=== PATIENT | male | born 1945 | race Caucasian/White ===

== ENCOUNTER 2018-06-26 05:43 | Inpatient (IN) ==
[2018-06-26] MEDS ORDERED: CLINDAMYCIN INJ 900 MG in PREMIX 1 EACH IV ONE (06:00)
[2018-06-26] MEDS ORDERED: MUPIROCIN 2% OINT 22 GM TUBE TOP ONE (06:18)
[2018-06-26] MEDS ORDERED: LIDOCAINE 1%/EPI INJ 20 ML VIAL ONE ×2 (06:18→08:06)
[2018-06-26] MEDS ORDERED: OXYMETAZOLINE 0.05% NASAL SPRAY 15 ML BOTTLE ONE (06:18)
[2018-06-26] MEDS ORDERED: CHLORHEXIDINE 0.12% ORAL RINSE 60 ML BOTTLE SWISH/SPIT ONE ×4 (06:18→15:06)
[2018-06-26] MEDS: LACTATED RINGERS 1,000 ML IV SCH ×2 (06:50→18:26)
[2018-06-26] MEDS ORDERED: CLINDAMYCIN INJ 50 ML IV ONE (07:00)
[2018-06-26] MEDS ORDERED: DEXAMETHASONE 4 MG/1 ML VIAL IV SCH (07:00)
[2018-06-26] MEDS: CHLORHEXIDINE 0.12% ORAL RINSE 60 ML BOTTLE SWISH/SPIT SCH ×3 (07:06→21:21)
[2018-06-26 08:18] LABS: Apearance,Urine CLEAR (Clear); Bacteria,Urine Occasional /HPF (Few); Bilirubin,Urine Negative (Negative); Blood, Urine Negative (Negative); Glucose,Urine (UA) Negative (Negative); Ketones,Urine Negative (Negative); Mucus,Urine Occasional /LPF (Occasional); Nitrite,Urine Negative (Negative); Protein,Urine Negative; RBC,Urine 3 /HPF (0-4); Urine Color Straw (Yellow); Urine Specific Gravity 1.008 (1.001-1.035); Urine Urobilinogen < 2.0 EU/DL (0.2-1.0); WBC,Urine <1 /HPF (0-6)
[2018-06-26] MEDS ORDERED: BACITRACIN 50,000 UNIT VIAL ONE ×2 (10:44→15:08)
[2018-06-26] MEDS ORDERED: PHENYLEPHRINE 10 MG/1 ML VIAL IV ONE (11:45)
[2018-06-26] MEDS ORDERED: PROPOFOL 200 MG/20 ML VIAL IV ONE (11:45)
[2018-06-26] MEDS ORDERED: MINERAL OIL/PETROLATUM OPH OINT 3.5 GM TUBE ONE (11:46)
[2018-06-26] MEDS ORDERED: SUCCINYLCHOLINE 200 MG/10 ML VIAL ONE (11:46)
[2018-06-26] MEDS ORDERED: GLYCOPYRROLATE 0.4 MG/2 ML VIAL ONE (11:46)
[2018-06-26] MEDS ORDERED: SODIUM CHLORIDE 0.9% 250 ML IV ONE (11:46)
[2018-06-26] MEDS ORDERED: ROCURONIUM 100 MG/10 ML VIAL IV ONE (11:46)
[2018-06-26] MEDS ORDERED: LACTATED RINGERS 1,000 ML IV ONE (11:46)
[2018-06-26 13:36] LABS: ABG Base Excess 2.8 MMOL/L (-2.5-2.5); ABG Oxygen Saturation 99.7 % (95-100); ABG PCO2 32.2 MM HG (35-48); ABG PH 7.505 (7.35-7.45); ABG TCO2 22.3 MMOL/L (23-27)
[2018-06-26] MEDS ORDERED: SUFentanil 250 MCG/5 ML AMP ONE (13:52)
[2018-06-26] MEDS ORDERED: ePHEDrine 50 MG/ML AMP ONE (13:53)
[2018-06-26] MEDS ORDERED: KETAMINE 500 MG/10 ML VIAL ONE (13:53)
[2018-06-26] MEDS ORDERED: MIDAZOLAM 2 MG/2 ML VIAL ONE (13:56)
[2018-06-26] MEDS ORDERED: MIDAZOLAM 10 MG/2 ML VIAL ONE (17:03)
[2018-06-26] MEDS ORDERED: PROPOFOL 1,000 MG/100 ML BOTTLE IV SCH (18:00)
[2018-06-26] MEDS: fentaNYL INJ 1,250 MCG in SODIUM CHLORIDE 0.9% 225 ML IV PRN (18:26)
[2018-06-26] MEDS: CLINDAMYCIN INJ 900 MG in PREMIX 1 EACH IV SCH ×2 (18:27→21:26)
[2018-06-26] MEDS: DEXAMETHASONE 4 MG/1 ML VIAL IV SCH (18:32)
[2018-06-26] MEDS ORDERED: PHENYLEPHRINE DRIP 40 MG/250 ML PREMIX IV PRN (18:45)
[2018-06-26 18:50] LABS: ABG Base Excess -0.7 MMOL/L (-2.5-2.5); ABG HCO3 23.8 MMOL/L (20-26); ABG Oxygen Saturation 99.7 % (95-100); ABG PCO2 37.9 MM HG (35-48); ABG PH 7.404 (7.35-7.45)
[2018-06-26] MEDS: TEMAZEPAM 15 MG CAPSULE PO SCH (21:21)
[2018-06-26] MEDS: PROPOFOL 1,000 MG/100 ML BOTTLE IV SCH (21:22)
[2018-06-26] MEDS: GLYCOPYRROLATE 0.4 MG/2 ML VIAL IV SCH (21:22)
[2018-06-27] MEDS: PROPOFOL 1,000 MG/100 ML BOTTLE IV SCH ×2 (03:23→14:37)
[2018-06-27] MEDS: DEXAMETHASONE 4 MG/1 ML VIAL IV SCH ×3 (05:36→12:23)
[2018-06-27] MEDS: GLYCOPYRROLATE 0.4 MG/2 ML VIAL IV SCH ×3 (05:39→21:02)
[2018-06-27] MEDS: CLINDAMYCIN INJ 900 MG in PREMIX 1 EACH IV SCH ×3 (05:41→21:02)
[2018-06-27 05:54] LABS: ABG Base Excess 1.1 MMOL/L (-2.5-2.5); ABG PCO2 37.1 MM HG (35-48); ABG PH 7.446 (7.35-7.45); ABG PO2 254.2 MM HG (80-95); ABG TCO2 26.1 MMOL/L (23-27)
[2018-06-27 06:02] LABS: Basophils % 0.1 % (0.0-0.8); Hematocrit 29.8 VOL% (42.0-52.0); Hemoglobin 10.3 GM/DL (14.0-18.0); Immature Granulocytes % 0.5 %; Immature Granulocytes Absolute 0.08 #; Lymphocytes # 1.1 10*3/uL (1.4-4.0); Lymphocytes % 7.6 % (21.2-54.2); Mean Corpuscular HGB Conc 34.6 GM/DL (32-36); Mean Corpuscular Hemoglobin 39 PG (27-34); Mean Corpuscular Volume 112.5 FL (87-102); Mean Platelet Volume 11.1 FL (9.6-12.0); Monocytes # 1.7 10*3/uL (0.11-0.8); Monocytes % 11.2 % (1.7-12.7); Neutrophils % 80.6 % (38.7-73.9); Platelet Count 129 T/CUMM (130-400); Red Blood Count 2.65 MC/CUMM (3.8-5.5); Red Cell Distribution Width 14.9 % (9.3-17.3); White Blood Count 14.9 T/CUMM (4-12)
[2018-06-27] MEDS ORDERED: HEPARIN/NACL 0.9% 2 UNITS/ML 500 ML IV ONE (06:14)
[2018-06-27] MEDS: LACTATED RINGERS 1,000 ML IV SCH ×3 (06:20→18:40)
[2018-06-27 06:29] LABS: Band Neutrophils 1 % (0-10); Eosinophils 1 % (0-10); Hypochromasia 1+; Lymphocytes 10 % (20-55); Platelet Estimate Normal; Segmented Neutrophils 75 % (50-85); Total Cells Counted 100
[2018-06-27] MEDS: fentaNYL INJ 1,250 MCG in SODIUM CHLORIDE 0.9% 225 ML IV PRN (08:28)
[2018-06-27] MEDS ORDERED: PROPRANOLOL HCL 60 MG PO SCH (09:00)
[2018-06-27] MEDS ORDERED: GLUCAGON 1 MG VIAL IM PRN (09:06)
[2018-06-27] MEDS ORDERED: DEXTROSE 50% 25 GM/50 ML VIAL IV PRN (09:06)
[2018-06-27] MEDS: MULTIVITAMIN (CENTRUM) TABLET PO SCH (09:41)
[2018-06-27] MEDS: LISINOPRIL 20 MG TABLET PO SCH (09:41)
[2018-06-27] MEDS: ATORVASTATIN 20 MG TABLET PO SCH (09:41)
[2018-06-27] MEDS: CHLORHEXIDINE 0.12% ORAL RINSE 60 ML BOTTLE SWISH/SPIT SCH ×3 (09:41→21:06)
[2018-06-27 09:46] LABS: Calcium 8.3 MG/DL (8.5-10.1); Osmolality,Calculated 287.4 MOS/KG (273-304)
[2018-06-27] MEDS: cloNIDine 0.3 MG/24 HR PATCH TRANSDERM SCH ×2 (12:22→14:32)
[2018-06-27] MEDS: amLODIPine 5 MG TABLET PER TUBE SCH (12:23)
[2018-06-27] MEDS: INSULIN GLARGINE 100 UNIT/ML SUBCUT SCH (12:23)
[2018-06-27] MEDS: INSULIN REGULAR 100 UNIT/ML SUBCUT SCH ×2 (12:24→17:50)
[2018-06-27] MEDS: TEMAZEPAM 15 MG CAPSULE PO SCH (20:58)
[2018-06-28] MEDS: INSULIN REGULAR 100 UNIT/ML SUBCUT SCH ×5 (00:52→23:39)
[2018-06-28 04:13] LABS: Basophils % 0.1 % (0.0-0.8); Hematocrit 26.1 VOL% (42.0-52.0); Hemoglobin 9.1 GM/DL (14.0-18.0); Immature Granulocytes % 0.6 %; Immature Granulocytes Absolute 0.11 #; Lymphocytes # 1.3 10*3/uL (1.4-4.0); Lymphocytes % 7.1 % (21.2-54.2); Mean Corpuscular HGB Conc 34.9 GM/DL (32-36); Mean Corpuscular Hemoglobin 39 PG (27-34); Mean Corpuscular Volume 112.5 FL (87-102); Mean Platelet Volume 10.8 FL (9.6-12.0); Monocytes # 2.2 10*3/uL (0.11-0.8); Monocytes % 11.4 % (1.7-12.7); Neutrophils # 15.4 10*3/uL (1.4-7.4); Neutrophils % 80.8 % (38.7-73.9); Platelet Count 129 T/CUMM (130-400); Red Blood Count 2.32 MC/CUMM (3.8-5.5); Red Cell Distribution Width 15.1 % (9.3-17.3)
[2018-06-28 04:35] LABS: Albumin 2.2 G/DL (3.4-5.0); Bilirubin,Total 1.1 MG/DL (0.2-1.0); Calcium 8.2 MG/DL (8.5-10.1); Potassium 4.2 MMOL/L (3.5-5.1); Total Protein 5.2 G/DL (6.4-8.3)
[2018-06-28 04:42] LABS: Calcium 8.1 MG/DL (8.5-10.1); Potassium 4.1 MMOL/L (3.5-5.1); Prealbumin 15.6 MG/DL (20-40)
[2018-06-28 04:44] LABS: Anisocytosis 1+; Platelet Estimate Adequate
[2018-06-28] MEDS: GLYCOPYRROLATE 0.4 MG/2 ML VIAL IV SCH ×3 (05:50→21:18)
[2018-06-28] MEDS: CLINDAMYCIN INJ 900 MG in PREMIX 1 EACH IV SCH ×3 (05:52→21:17)
[2018-06-28] MEDS: LACTATED RINGERS 1,000 ML IV SCH ×3 (05:53→20:26)
[2018-06-28] MEDS: MULTIVITAMIN (CENTRUM) TABLET PO SCH ×2 (09:24→09:41)
[2018-06-28] MEDS: ATORVASTATIN 20 MG TABLET PO SCH (09:24)
[2018-06-28] MEDS: INSULIN GLARGINE 100 UNIT/ML SUBCUT SCH (09:25)
[2018-06-28] MEDS: amLODIPine 5 MG TABLET PER TUBE SCH (09:26)
[2018-06-28] MEDS: CHLORHEXIDINE 0.12% ORAL RINSE 60 ML BOTTLE SWISH/SPIT SCH ×3 (09:26→20:26)
[2018-06-28] MEDS: LISINOPRIL 20 MG TABLET PO SCH ×2 (09:26→09:41)
[2018-06-28] MEDS: TEMAZEPAM 15 MG CAPSULE PO SCH (20:18)
[2018-06-28] MEDS ORDERED: cloNIDine 0.1 MG/24 HR PATCH TRANSDERM SCH (21:00)
[2018-06-29] MEDS ORDERED: cloNIDine 0.3 MG/24 HR PATCH TRANSDERM SCH (00:30)
[2018-06-29] MEDS: GLYCOPYRROLATE 0.4 MG/2 ML VIAL IV SCH ×2 (05:25→14:40)
[2018-06-29] MEDS: CLINDAMYCIN INJ 900 MG in PREMIX 1 EACH IV SCH ×3 (05:25→21:37)
[2018-06-29] MEDS: INSULIN REGULAR 100 UNIT/ML SUBCUT SCH ×3 (06:19→17:30)
[2018-06-29] MEDS: LACTATED RINGERS 1,000 ML IV SCH (08:13)
[2018-06-29] MEDS: CHLORHEXIDINE 0.12% ORAL RINSE 60 ML BOTTLE SWISH/SPIT SCH ×2 (08:20→16:14)
[2018-06-29] MEDS ORDERED: MORPHINE 4 MG/1 ML VIAL IV PRN (10:07)
[2018-06-29] MEDS ORDERED: KETOROLAC 30 MG/1 ML VIAL IV PRN (10:07)
[2018-06-29] MEDS: INSULIN GLARGINE 100 UNIT/ML SUBCUT SCH (12:36)
[2018-06-29] MEDS: MULTIVITAMIN (CENTRUM) TABLET PO SCH (12:36)
[2018-06-29] MEDS: ATORVASTATIN 20 MG TABLET PO SCH (12:36)
[2018-06-29] MEDS: amLODIPine 5 MG TABLET PER TUBE SCH (12:37)
[2018-06-29] MEDS: LISINOPRIL 20 MG TABLET PO SCH (12:37)
[2018-06-29] MEDS ORDERED: diphenhydrAMINE 50 MG/1 ML VIAL IV ONE (20:55)
[2018-06-29] MEDS: TEMAZEPAM 15 MG CAPSULE PO SCH (20:57)
[2018-06-30] MEDS: CHLORHEXIDINE 0.12% ORAL RINSE 60 ML BOTTLE SWISH/SPIT SCH ×2 (01:43→09:41)
[2018-06-30] MEDS: INSULIN REGULAR 100 UNIT/ML SUBCUT SCH ×3 (01:43→11:59)
[2018-06-30] MEDS: LACTATED RINGERS 1,000 ML IV SCH (04:53)
[2018-06-30 05:38] LABS: Basophils % 0.1 % (0.0-0.8); Eosinophils % 0.3 % (0.00-10.9); Immature Granulocytes % 0.7 %; Immature Granulocytes Absolute 0.05 #; Lymphocytes # 1.8 10*3/uL (1.4-4.0); Lymphocytes % 25.6 % (21.2-54.2); Mean Corpuscular HGB Conc 34.6 GM/DL (32-36); Mean Corpuscular Hemoglobin 38 PG (27-34); Mean Corpuscular Volume 110.6 FL (87-102); Mean Platelet Volume 10.5 FL (9.6-12.0); Monocytes # 0.9 10*3/uL (0.11-0.8); Neutrophils # 4.4 10*3/uL (1.4-7.4); Neutrophils % 61.3 % (38.7-73.9); Platelet Count 120 T/CUMM (130-400); Red Blood Count 2.35 MC/CUMM (3.8-5.5); Red Cell Distribution Width 14.5 % (9.3-17.3); White Blood Count 7.2 T/CUMM (4-12)
[2018-06-30] MEDS: CLINDAMYCIN INJ 900 MG in PREMIX 1 EACH IV SCH (05:42)
[2018-06-30 05:51] LABS: Osmolality,Calculated 288.1 MOS/KG (273-304); Potassium 3.6 MMOL/L (3.5-5.1)
[2018-06-30 06:22] LABS: Band Neutrophils 5 % (0-10); Eosinophils 1 % (0-10); Lymphocytes 24 % (20-55); Metamyelocytes 3 %; Platelet Estimate Decreased; Segmented Neutrophils 53 % (50-85); Total Cells Counted 100
[2018-06-30 06:23] LABS: Anisocytosis 2+; Macrocytosis 2+; Ovalocytes Few
[2018-06-30] MEDS ORDERED: ZALEPLON 5 MG CAPSULE PO PRN (08:10)
[2018-06-30 09:05] LABS: Folate > 24.0 NG/ML (5.4-24.0); Vitamin B12 783 PG/ML (211-911)
[2018-06-30] MEDS: MULTIVITAMIN (CENTRUM) TABLET PO SCH (09:37)
[2018-06-30] MEDS: LISINOPRIL 20 MG TABLET PO SCH (09:38)
[2018-06-30] MEDS: amLODIPine 5 MG TABLET PER TUBE SCH (09:38)
[2018-06-30] MEDS: ATORVASTATIN 20 MG TABLET PO SCH (09:38)
[2018-06-30] MEDS: INSULIN GLARGINE 100 UNIT/ML SUBCUT SCH (09:39)
[2018-06-30 12:31] VITALS: BP 155/71
[2018-06-30] MEDS ORDERED: traZODone 50 MG TABLET PO SCH (21:00)
== END 2018-06-30 13:50 | disposition home health service (06) | DRG 129 ==
LOC: N.OR 05:43 → N.SDSINP 05:43 → N.CC 16:25 → N.3E 06-29 17:58
PROVIDERS: ADMIT Otolaryngology; ATTEND Otolaryngology

== ENCOUNTER 2019-05-17 10:25 | Inpatient (IN) ==
[2019-05-17 12:02] LABS: Basophils % 0.2 % (0.0-0.8); Eosinophils # 0.1 10*3/uL (0.0-0.87); Eosinophils % 2.5 % (0.00-10.9); Immature Granulocytes % 0.5 %; Immature Granulocytes Absolute 0.02 #; Lymphocytes # 0.8 10*3/uL (1.4-4.0); Mean Corpuscular HGB Conc 32.4 GM/DL (32-36); Mean Corpuscular Volume 133.7 FL (87-102); Monocytes % 11.8 % (1.7-12.7); Platelet Count 172 T/CUMM (130-400); Red Blood Count 1.04 MC/CUMM (3.8-5.5); Red Cell Distribution Width 22.9 % (9.3-17.3); White Blood Count 4.4 T/CUMM (4-12)
[2019-05-17 12:08] LABS: Hematocrit 13.9 VOL% (42.0-52.0); Hemoglobin 4.5 GM/DL (14.0-18.0)
[2019-05-17 12:23] LABS: Blood Urea Nitrogen 16 MG/DL (7-18); Calcium 8.4 MG/DL (8.5-10.1); Estimated Glom Filtration Rate 61 ML/MIN; Glucose 163 MG/DL (74-106); Osmolality,Calculated 285.3 MOS/KG (273-304)
[2019-05-17 12:25] LABS: Acanthocytes Few; Anisocytosis 3+; Eosinophils 5 % (0-10); Lymphocytes 22 % (20-55); Macrocytosis 3+; Nucleated Red Blood Cells 1 (0-5); Poikilocytosis Slight; Segmented Neutrophils 66 % (50-85); Total Cells Counted 100
[2019-05-17 12:26] LABS: Microcytosis Slight
[2019-05-17 12:27] LABS: Platelet Estimate Normal
[2019-05-17] MEDS ORDERED: SODIUM CHLORIDE 0.9% 1,000 ML IV PRN ×2 (12:27→14:14)
[2019-05-17] MEDS ORDERED: ACETAMINOPHEN 325 MG TABLET PO PRN (13:37)
[2019-05-17] MEDS ORDERED: LACTULOSE 20 GM/30 ML UDCUP PO PRN (13:37)
[2019-05-17] MEDS ORDERED: SIMETHICONE CHEW 125 MG TABLET PO PRN (13:37)
[2019-05-17] MEDS ORDERED: ALUMINUM/MAGNES/SIMETH MAX STR 30 ML UDCUP PO PRN (13:37)
[2019-05-17] MEDS ORDERED: diphenhydrAMINE CAP 25 MG CAPSULE PO PRN (13:37)
[2019-05-17] MEDS ORDERED: NICOTINE 21 MG/24 HR PATCH TRANSDERM PRN (13:37)
[2019-05-17] MEDS ORDERED: ONDANSETRON 4 MG/2 ML VIAL IV PRN (13:37)
[2019-05-17] MEDS ORDERED: BISACODYL 5 MG TABLET PO PRN (13:37)
[2019-05-17] MEDS ORDERED: DOCUSATE SODIUM 100 MG CAPSULE PO PRN (13:37)
[2019-05-17] MEDS ORDERED: CALCIUM CARBONATE CHEW 500 MG TABLET PO PRN (13:37)
[2019-05-17] MEDS ORDERED: guaiFENesin/DM ER 600-30 MG TABLET PO PRN (13:37)
[2019-05-17] MEDS ORDERED: MORPHINE 4 MG/1 ML VIAL IV PRN (13:37)
[2019-05-17] MEDS ORDERED: FUROSEMIDE 20 MG/2 ML VIAL IV ONE (13:44)
[2019-05-17] MEDS ORDERED: traZODone 50 MG TABLET PO PRN (14:16)
[2019-05-17] MEDS: PANTOPRAZOLE 40 MG VIAL IV SCH (17:02)
[2019-05-17] MEDS: PROPRANOLOL 20 MG TABLET PO SCH (20:35)
[2019-05-17] MEDS: ATORVASTATIN 40 MG TABLET PO SCH (20:35)
[2019-05-17] MEDS: traZODone 50 MG TABLET PO SCH (20:35)
[2019-05-17] MEDS: LORazepam 1 MG TABLET PO SCH (20:35)
[2019-05-18 05:40] LABS: Basophils # 0.1 10*3/uL (0.0-0.2); Basophils % 1.2 % (0.0-0.8); Eosinophils # 0.1 10*3/uL (0.0-0.87); Eosinophils % 2.9 % (0.00-10.9); Hematocrit 24.9 VOL% (42.0-52.0); Hemoglobin 8.9 GM/DL (14.0-18.0); Immature Granulocytes % 0.5 %; Immature Granulocytes Absolute 0.02 #; Lymphocytes % 24.5 % (21.2-54.2); Mean Corpuscular HGB Conc 35.7 GM/DL (32-36); Mean Corpuscular Volume 94.7 FL (87-102); Mean Platelet Volume 9.9 FL (9.6-12.0); Monocytes % 14.6 % (1.7-12.7); Neutrophils % 56.3 % (38.7-73.9); Platelet Count 153 T/CUMM (130-400); Red Blood Count 2.63 MC/CUMM (3.8-5.5); Red Cell Distribution Width 25.4 % (9.3-17.3); White Blood Count 4.1 T/CUMM (4-12)
[2019-05-18 06:23] LABS: % Iron Saturation 97.1 % (18-50); Ferritin 848.7 ng/ml (26-388)
[2019-05-18 06:27] LABS: Hypochromasia Slight; Macrocytosis 2+
[2019-05-18 06:28] LABS: Platelet Estimate Adequate
[2019-05-18 06:32] LABS: Folate 21.7 NG/ML (5.4-24.0)
[2019-05-18] MEDS: PROPRANOLOL 20 MG TABLET PO SCH ×2 (11:36→21:53)
[2019-05-18] MEDS: MULTIVITAMIN (CENTRUM) TABLET PO SCH (11:36)
[2019-05-18] MEDS: lisinopriL 20 MG TABLET PO SCH (11:36)
[2019-05-18] MEDS: PANTOPRAZOLE 40 MG VIAL IV SCH (14:28)
[2019-05-18] MEDS ORDERED: NITROGLYCERIN SL 0.4 MG TABLET SL ONE (20:24)
[2019-05-18] MEDS: NITROGLYCERIN SL 0.4 MG TABLET SL PRN ×2 (20:26→20:33)
[2019-05-18 21:01] LABS: Basophils % 0.7 % (0.0-0.8); Eosinophils # 0.1 10*3/uL (0.0-0.87); Eosinophils % 2.8 % (0.00-10.9); Hematocrit 26.5 VOL% (42.0-52.0); Immature Granulocytes % 0.2 %; Immature Granulocytes Absolute 0.01 #; Lymphocytes % 23.6 % (21.2-54.2); Mean Corpuscular Volume 97.8 FL (87-102); Mean Platelet Volume 9.5 FL (9.6-12.0); Monocytes % 14.8 % (1.7-12.7); Neutrophils % 57.9 % (38.7-73.9); Platelet Count 144 T/CUMM (130-400); Red Blood Count 2.71 MC/CUMM (3.8-5.5); Red Cell Distribution Width 26.2 % (9.3-17.3); White Blood Count 4.3 T/CUMM (4-12)
[2019-05-18 21:02] LABS: Troponin I < 0.015 NG/ML (0.00-0.045)
[2019-05-18] MEDS: ATORVASTATIN 40 MG TABLET PO SCH (21:53)
[2019-05-18] MEDS: traZODone 50 MG TABLET PO SCH (21:53)
[2019-05-18] MEDS: LORazepam 1 MG TABLET PO SCH (21:53)
[2019-05-19 05:30] LABS: Basophils % 1.1 % (0.0-0.8); Eosinophils # 0.1 10*3/uL (0.0-0.87); Eosinophils % 2.2 % (0.00-10.9); Hematocrit 25.5 VOL% (42.0-52.0); Hemoglobin 8.8 GM/DL (14.0-18.0); Immature Granulocytes % 0.3 %; Immature Granulocytes Absolute 0.01 #; Lymphocytes # 1.1 10*3/uL (1.4-4.0); Lymphocytes % 29.3 % (21.2-54.2); Mean Corpuscular HGB Conc 34.5 GM/DL (32-36); Mean Platelet Volume 9.9 FL (9.6-12.0); Monocytes % 15.1 % (1.7-12.7); Platelet Count 138 T/CUMM (130-400); Red Blood Count 2.63 MC/CUMM (3.8-5.5); Red Cell Distribution Width 25.7 % (9.3-17.3); White Blood Count 3.6 T/CUMM (4-12)
[2019-05-19 05:33] LABS: INR 1.1; PT Patient Result 11.6 SECS (9.6-12.2)
[2019-05-19 05:54] LABS: Albumin 2.8 G/DL (3.4-5.0); Bilirubin,Total 2.8 MG/DL (0.2-1.0); Calcium 8.8 MG/DL (8.5-10.1); Osmolality,Calculated 282.1 MOS/KG (273-304); Risk Ratio 2.08; VLDL CHOLESTEROL 16.2 MG/DL
[2019-05-19] MEDS ORDERED: POTASSIUM CHLORIDE 20 MEQ TABLET PO ONE (08:33)
[2019-05-19 08:59] LABS: Hepatitis B Core IgM Quant 0.07 Index; Hepatitis B Surface Ag Quant < 0.10 Index; Hepatitis B Surface Ag Result Negative (Negative); Hepatitis C Virus Ab Quant 0.07 Index; Hepatitis C Virus Ab Result Negative (Negative)
[2019-05-19] MEDS: MULTIVITAMIN (CENTRUM) TABLET PO SCH (10:07)
[2019-05-19] MEDS: lisinopriL 20 MG TABLET PO SCH (10:07)
[2019-05-19] MEDS: PROPRANOLOL 20 MG TABLET PO SCH ×2 (10:07→20:35)
[2019-05-19] MEDS: PANTOPRAZOLE 40 MG VIAL IV SCH (15:04)
[2019-05-19] MEDS: LORazepam 1 MG TABLET PO SCH (20:33)
[2019-05-19] MEDS: ATORVASTATIN 40 MG TABLET PO SCH (20:34)
[2019-05-19] MEDS: traZODone 50 MG TABLET PO SCH (20:34)
[2019-05-20 05:06] LABS: Basophils # 0.1 10*3/uL (0.0-0.2); Basophils % 1.6 % (0.0-0.8); Eosinophils # 0.2 10*3/uL (0.0-0.87); Eosinophils % 4.1 % (0.00-10.9); Hematocrit 26.9 VOL% (42.0-52.0); Immature Granulocytes % 0.5 %; Immature Granulocytes Absolute 0.02 #; Lymphocytes % 26.4 % (21.2-54.2); Mean Corpuscular HGB Conc 33.5 GM/DL (32-36); Mean Corpuscular Volume 98.9 FL (87-102); Mean Platelet Volume 9.8 FL (9.6-12.0); Monocytes % 14.5 % (1.7-12.7); Neutrophils % 52.9 % (38.7-73.9); Platelet Count 135 T/CUMM (130-400); Red Blood Count 2.72 MC/CUMM (3.8-5.5); Red Cell Distribution Width 24.8 % (9.3-17.3); White Blood Count 3.9 T/CUMM (4-12)
[2019-05-20 05:23] LABS: Albumin 2.9 G/DL (3.4-5.0); Bilirubin,Total 2.2 MG/DL (0.2-1.0); Calcium 8.8 MG/DL (8.5-10.1); Osmolality,Calculated 283.1 MOS/KG (273-304); Total Protein 6.1 G/DL (6.4-8.3)
[2019-05-20 05:36] LABS: Hypochromasia 1+; Platelet Estimate Normal
[2019-05-20] MEDS ORDERED: LIDOCAINE 2% 5 ML VIAL ONE (09:00)
[2019-05-20] MEDS ORDERED: propofoL 200 MG/20 ML VIAL IV ONE (09:00)
[2019-05-20] MEDS: POTASSIUM CHLORIDE RIDER 10 MEQ in PREMIX 1 EACH IV PRN ×5 (09:05→15:58)
[2019-05-20] MEDS: lisinopriL 20 MG TABLET PO SCH (09:06)
[2019-05-20] MEDS: PROPRANOLOL 20 MG TABLET PO SCH ×2 (09:17→20:55)
[2019-05-20] MEDS: PANTOPRAZOLE 40 MG VIAL IV SCH (13:00)
[2019-05-20] MEDS: POTASSIUM CHLORIDE 20 MEQ PACK PO SCH (13:01)
[2019-05-20] MEDS: MULTIVITAMIN (CENTRUM) TABLET PO SCH (13:01)
[2019-05-20] MEDS: ATORVASTATIN 40 MG TABLET PO SCH (20:48)
[2019-05-20] MEDS: LORazepam 1 MG TABLET PO SCH (20:48)
[2019-05-20] MEDS: traZODone 50 MG TABLET PO SCH (20:48)
[2019-05-21 07:03] LABS: Basophils # 0.1 10*3/uL (0.0-0.2); Basophils % 1.9 % (0.0-0.8); Eosinophils # 0.2 10*3/uL (0.0-0.87); Eosinophils % 4.7 % (0.00-10.9); Hematocrit 25.2 VOL% (42.0-52.0); Hemoglobin 8.4 GM/DL (14.0-18.0); Immature Granulocytes % 0.3 %; Immature Granulocytes Absolute 0.01 #; Lymphocytes # 0.9 10*3/uL (1.4-4.0); Lymphocytes % 29.4 % (21.2-54.2); Mean Corpuscular HGB Conc 33.3 GM/DL (32-36); Mean Corpuscular Volume 101.6 FL (87-102); Mean Platelet Volume 9.5 FL (9.6-12.0); Monocytes % 15.3 % (1.7-12.7); Neutrophils % 48.4 % (38.7-73.9); Platelet Count 121 T/CUMM (130-400); Red Blood Count 2.48 MC/CUMM (3.8-5.5); Red Cell Distribution Width 24.2 % (9.3-17.3); White Blood Count 3.2 T/CUMM (4-12)
[2019-05-21 07:23] LABS: Albumin 2.7 G/DL (3.4-5.0); Bilirubin,Total 2.3 MG/DL (0.2-1.0); Calcium 8.8 MG/DL (8.5-10.1); Total Protein 5.9 G/DL (6.4-8.3)
[2019-05-21 07:29] LABS: Hypochromasia 2+; Platelet Estimate Normal
[2019-05-21] MEDS: PROPRANOLOL 20 MG TABLET PO SCH (09:12)
[2019-05-21] MEDS: POTASSIUM CHLORIDE 20 MEQ PACK PO SCH (09:12)
[2019-05-21] MEDS: lisinopriL 20 MG TABLET PO SCH (09:12)
[2019-05-21] MEDS: MULTIVITAMIN (CENTRUM) TABLET PO SCH (09:12)
[2019-05-21 11:59] VITALS: BP 137/44
[2019-05-21] MEDS: PANTOPRAZOLE 40 MG VIAL IV SCH (14:37)
== END 2019-05-21 15:59 | disposition home or self-care (01) | DRG 147 ==
LOC: N.ED 10:25 → N.EDINP 13:37 → N.ICU 14:10 → N.2E 05-18 11:05
PROVIDERS: ADMIT Internal Medicine; ATTEND Internal Medicine

== ENCOUNTER 2020-11-20 08:48 | Observation (INO) ==
[2020-11-20] MEDS ORDERED: ONDANSETRON 4 MG/2 ML VIAL IV PRN (09:02)
[2020-11-20] MEDS: LACTATED RINGERS 1,000 ML IV SCH (09:30)
[2020-11-20 10:07] LABS: Basophils # 0.2 10*3/uL (0.0-0.2); Basophils % 1.7 % (0.0-0.8); Eosinophils # 0.2 10*3/uL (0.0-0.87); Hematocrit 25.6 VOL% (42.0-52.0); Hemoglobin 8.1 GM/DL (14.0-18.0); Immature Granulocytes % 1.4 %; Immature Granulocytes Absolute 0.14 #; Lymphocytes # 1.9 10*3/uL (1.4-4.0); Lymphocytes % 19.5 % (21.2-54.2); Mean Corpuscular HGB Conc 31.6 GM/DL (32-36); Mean Corpuscular Volume 119.1 FL (87-102); Mean Platelet Volume 9.7 FL (9.6-12.0); Monocytes % 4.8 % (1.7-12.7); Neutrophils % 70.6 % (38.7-73.9); Platelet Count 486 T/CUMM (130-400); Red Blood Count 2.15 MC/CUMM (3.8-5.5); White Blood Count 9.8 T/CUMM (4-12)
[2020-11-20 10:16] LABS: INR 1.1; PT Patient Result 12.4 SECS (10.5-12.0)
[2020-11-20 10:31] LABS: Anisocytosis 1+; Band Neutrophils 6 % (0-10); Hypochromasia Slight; Lymphocytes 11 % (20-55); Macrocytosis 1+; Segmented Neutrophils 77 % (50-85); Total Cells Counted 100
[2020-11-20 10:32] LABS: Platelet Estimate Increased
[2020-11-20] MEDS ORDERED: LIDOCAINE 2% 5 ML VIAL ONE (10:44)
[2020-11-20] MEDS ORDERED: propofoL 200 MG/20 ML VIAL IV ONE (10:44)
[2020-11-20] MEDS: SODIUM CHLORIDE 0.9% 1,000 ML IV SCH ×2 (12:00→23:52)
[2020-11-21 12:55] VITALS: BP 119/43
[2020-11-21] MEDS: LACTATED RINGERS 1,000 ML IV SCH (13:39)
[2020-11-21] MEDS: SODIUM CHLORIDE 0.9% 1,000 ML IV SCH (14:20)
== END 2020-11-21 14:20 | disposition home health service (06) ==
LOC: N.5E 08:48 → N.GILAB 08:48 → N.5E 11:51
PROVIDERS: ADMIT Internal Medicine Gastroenterology; ATTEND Internal Medicine Gastroenterology
PROC: EGDWPEG (ICD-10-PCS; 2020-11-20 08:20)

== ENCOUNTER 2020-12-07 18:10 | Inpatient (IN) ==
[2020-12-07] MEDS ORDERED: PIPERACILLIN/TAZOBACTAM 3,375 MG in SODIUM CHLORIDE 0.9% 100 ML IV STA (19:04)
[2020-12-07] MEDS ORDERED: ONDANSETRON 4 MG/2 ML VIAL IV STA (19:04)
[2020-12-07] MEDS ORDERED: ALBUTEROL/IPRATROPIUM 3 ML NEB RESP TX STA (19:04)
[2020-12-07] MEDS ORDERED: methylPREDNISolone SOD SUC 125 MG/2 ML VIAL IV STA (19:04)
[2020-12-07] MEDS ORDERED: SODIUM CHLORIDE 0.9% 500 ML IV STA (19:04)
[2020-12-07 19:51] LABS: Basophils # 0.1 10*3/uL (0.0-0.2); Basophils % 0.3 % (0.0-0.8); Eosinophils # 0.1 10*3/uL (0.0-0.87); Eosinophils % 0.2 % (0.00-10.9); Immature Granulocytes % 1.8 %; Immature Granulocytes Absolute 0.46 #; Lymphocytes # 1.8 10*3/uL (1.4-4.0); Lymphocytes % 6.8 % (21.2-54.2); Mean Corpuscular HGB Conc 32.1 GM/DL (32-36); Mean Corpuscular Volume 126.6 FL (87-102); Mean Platelet Volume 10.2 FL (9.6-12.0); Monocytes % 3.6 % (1.7-12.7); Neutrophils % 87.3 % (38.7-73.9); Platelet Count 721 T/CUMM (130-400); Red Blood Count 1.28 MC/CUMM (3.8-5.5); Red Cell Distribution Width 23.5 % (9.3-17.3); White Blood Count 25.7 T/CUMM (4-12)
[2020-12-07 20:00] LABS: Hematocrit 16.2 VOL% (42.0-52.0); Hemoglobin 5.2 GM/DL (14.0-18.0)
[2020-12-07 20:09] LABS: Albumin 2.2 G/DL (3.4-5.0); Bilirubin,Total 1.1 MG/DL (0.20-1.00); Calcium 8.2 MG/DL (8.5-10.1); Potassium 3.9 MMOL/L (3.5-5.1); Total Protein 7.5 G/DL (6.4-8.2)
[2020-12-07 20:21] LABS: INR 1.2; PT Patient Result 13.5 SECS (10.5-12.0)
[2020-12-07 21:03] LABS: Band Neutrophils 1 % (0-10); Eosinophils 1 % (0-10); Lymphocytes 8 % (20-55); Segmented Neutrophils 89 % (50-85); Total Cells Counted 100
[2020-12-07 21:04] LABS: Anisocytosis 1+; Polychromasia 1+
[2020-12-07 21:05] LABS: Platelet Estimate Increased
[2020-12-07] MEDS ORDERED: VECURONIUM 10 MG VIAL IV ONE (21:51)
[2020-12-07] MEDS ORDERED: ETOMIDATE 20 MG/10 ML VIAL IV ONE (21:51)
[2020-12-07] MEDS ORDERED: SODIUM CHLORIDE 0.9% 1,000 ML IV PRN (22:03)
[2020-12-07] MEDS ORDERED: ALBUTEROL 2.5 MG/3 ML NEB RESP TX PRN (22:03)
[2020-12-07] MEDS ORDERED: ONDANSETRON 4 MG/2 ML VIAL IV PRN (22:08)
[2020-12-07] MEDS ORDERED: hydrALAZINE 20 MG/1 ML VIAL IV PRN (22:08)
[2020-12-07] MEDS ORDERED: NICOTINE 21 MG/24 HR PATCH TRANSDERM PRN (22:08)
[2020-12-07] MEDS: MIDAZOLAM 100 MG in SODIUM CHLORIDE 0.9% 80 ML IV PRN (22:25)
[2020-12-07 22:43] LABS: ABG Base Excess -9.5 MMOL/L (-2.5-2.5); ABG HCO3 16.6 MMOL/L (20-26); ABG Oxygen Saturation 99.7 % (95-100); ABG TCO2 18.7 MMOL/L (23-27)
[2020-12-07 22:44] LABS: ABG PH 7.145 (7.35-7.45)
[2020-12-08] MEDS: LACTATED RINGERS 1,000 ML IV SCH ×2 (01:00→17:39)
[2020-12-08] MEDS: ALBUTEROL/IPRATROPIUM 3 ML NEB RESP TX SCH ×2 (01:25→08:21)
[2020-12-08 03:06] LABS: Bilirubin,Urine Negative (Negative); Blood, Urine Small mg/dL (Negative); Glucose,Urine (UA) 50 mg/dL (Negative); Ketones,Urine Negative (Negative); Nitrite,Urine Negative (Negative); Protein,Urine 100 MG/DL; RBC,Urine 8 /HPF (0-4); Squamous Epithelial Cell,Urine Occasional /HPF (0-10); Urine Appearance CLOUDY (Clear); Urine Color Yellow (Yellow); Urine Specific Gravity 1.019 (1.001-1.035); Urine Urobilinogen < 2.0 EU/DL (0.2-1.0)
[2020-12-08] MEDS ORDERED: SODIUM CHLORIDE 0.9% 500 ML IV ONE (03:50)
[2020-12-08] MEDS: ENOXAPARIN 30 MG/0.3 ML SYRINGE SUBCUT SCH ×3 (04:00→23:57)
[2020-12-08 05:18] LABS: ABG HCO3 20.1 MMOL/L (20-26); ABG PCO2 32.2 MM HG (35-48); ABG PH 7.413 (7.35-7.45); ABG PO2 239.5 MM HG (80-95); ABG TCO2 21.1 MMOL/L (23-27)
[2020-12-08 06:16] LABS: Basophils # 0.1 10*3/uL (0.0-0.2); Basophils % 0.5 % (0.0-0.8); Eosinophils % 0.1 % (0.00-10.9); Hematocrit 21.9 VOL% (42.0-52.0); Immature Granulocytes % 2.8 %; Immature Granulocytes Absolute 0.81 #; Lymphocytes % 3.6 % (21.2-54.2); Mean Corpuscular HGB Conc 32.9 GM/DL (32-36); Mean Corpuscular Volume 106.3 FL (87-102); Monocytes % 1.7 % (1.7-12.7); Neutrophils % 91.3 % (38.7-73.9); Red Cell Distribution Width 25.1 % (9.3-17.3); White Blood Count 28.8 T/CUMM (4-12)
[2020-12-08 06:21] LABS: INR 1.3
[2020-12-08 06:39] LABS: Bilirubin,Total 1.5 MG/DL (0.20-1.00); Calcium 7.7 MG/DL (8.5-10.1); Osmolality,Calculated 293.8 MOS/KG (273-304); Potassium 4.6 MMOL/L (3.5-5.1); Total Protein 6.6 G/DL (6.4-8.2)
[2020-12-08 06:40] LABS: Red Blood Count 2.06 MC/CUMM (3.8-5.5)
[2020-12-08 06:41] LABS: Hemoglobin 7.2 GM/DL (14.0-18.0); Platelet Count 417 T/CUMM (130-400)
[2020-12-08 06:43] LABS: Band Neutrophils 3 % (0-10); Hypochromasia 1+; Lymphocytes 4 % (20-55); Microcytosis 1+; Platelet Estimate Adequate; Segmented Neutrophils 91 % (50-85); Total Cells Counted 100
[2020-12-08 06:53] LABS: Ferritin 24892.6 ng/mL (26-388)
[2020-12-08] MEDS: DEXAMETHASONE 4 MG/1 ML VIAL IV SCH (08:03)
[2020-12-08] MEDS: ZINC GLUCONATE 50 MG TABLET PO SCH (08:03)
[2020-12-08] MEDS: PANTOPRAZOLE 40 MG VIAL IV SCH (08:03)
[2020-12-08] MEDS: ASCORBIC ACID 500 MG TABLET PO SCH ×2 (08:03→20:53)
[2020-12-08] MEDS: CHOLECALCIFEROL 1,000 UNIT TABLET PO SCH (08:03)
[2020-12-08] MEDS: CETIRIZINE 10 MG TABLET PO SCH (08:03)
[2020-12-08] MEDS: NOREPINEPHRINE 8 MG in SODIUM CHLORIDE 0.9% 242 ML IV PRN ×2 (08:53→16:50)
[2020-12-08] MEDS ORDERED: PROPRANOLOL 10 MG TABLET PEG SCH (09:00)
[2020-12-08] MEDS ORDERED: DEXTROSE 50% 25 GM/50 ML VIAL IV PRN (09:27)
[2020-12-08] MEDS: PIPERACILLIN/TAZOBACTAM 3,375 MG in SODIUM CHLORIDE 0.9% 100 ML IV SCH ×3 (10:00→23:57)
[2020-12-08] MEDS: INSULIN REGULAR 100 UNIT/ML SUBCUT SCH ×2 (12:46→17:40)
[2020-12-08] MEDS: ALBUTEROL INHALER 18 GM INH SCH (17:39)
[2020-12-08] MEDS: MIDAZOLAM 100 MG in SODIUM CHLORIDE 0.9% 80 ML IV PRN (23:40)
[2020-12-09] MEDS: INSULIN REGULAR 100 UNIT/ML SUBCUT SCH ×4 (00:09→17:40)
[2020-12-09] MEDS: LACTATED RINGERS 1,000 ML IV SCH ×3 (05:22→19:27)
[2020-12-09 05:23] LABS: ABG Base Excess -3.3 MMOL/L (-2.5-2.5); ABG HCO3 21.6 MMOL/L (20-26); ABG PCO2 29.7 MM HG (35-48); ABG PH 7.439 (7.35-7.45); ABG TCO2 18.8 MMOL/L (23-27)
[2020-12-09 05:50] LABS: Basophils # 0.1 10*3/uL (0.0-0.2); Basophils % 0.1 % (0.0-0.8); Hematocrit 19.7 VOL% (42.0-52.0); Hemoglobin 6.9 GM/DL (14.0-18.0); Immature Granulocytes % 1.9 %; Immature Granulocytes Absolute 0.65 #; Lymphocytes # 0.6 10*3/uL (1.4-4.0); Lymphocytes % 1.8 % (21.2-54.2); Mean Corpuscular Volume 104.8 FL (87-102); Mean Platelet Volume 10.3 FL (9.6-12.0); Monocytes % 1.9 % (1.7-12.7); Neutrophils % 94.3 % (38.7-73.9); Platelet Count 427 T/CUMM (130-400); Red Blood Count 1.88 MC/CUMM (3.8-5.5); Red Cell Distribution Width 26.9 % (9.3-17.3); White Blood Count 33.7 T/CUMM (4-12)
[2020-12-09 06:13] LABS: Band Neutrophils 8 % (0-10); Lymphocytes 3 % (20-55); Metamyelocytes 1 %; Myelocytes 1 %; Segmented Neutrophils 86 % (50-85); Total Cells Counted 100
[2020-12-09 06:14] LABS: Anisocytosis 1+; Hypochromasia Slight; Microcytosis 1+; Platelet Estimate Increased; Polychromasia Slight
[2020-12-09 06:19] LABS: Albumin 1.8 G/DL (3.4-5.0); Calcium 7.6 MG/DL (8.5-10.1); Osmolality,Calculated 302.5 MOS/KG (273-304); Potassium 4.1 MMOL/L (3.5-5.1); Total Protein 5.9 G/DL (6.4-8.2)
[2020-12-09] MEDS ORDERED: SODIUM CHLORIDE 0.9% 1,000 ML IV PRN (07:05)
[2020-12-09] MEDS: ALBUTEROL INHALER 18 GM INH SCH ×4 (07:06→18:37)
[2020-12-09] MEDS: MIDAZOLAM 100 MG in SODIUM CHLORIDE 0.9% 80 ML IV PRN ×2 (08:00→22:46)
[2020-12-09] MEDS: PANTOPRAZOLE 40 MG VIAL IV SCH (08:39)
[2020-12-09] MEDS: CETIRIZINE 10 MG TABLET PO SCH (08:39)
[2020-12-09] MEDS: DEXAMETHASONE 4 MG/1 ML VIAL IV SCH (08:39)
[2020-12-09] MEDS: ASCORBIC ACID 500 MG TABLET PO SCH ×2 (08:39→20:12)
[2020-12-09] MEDS: CHOLECALCIFEROL 1,000 UNIT TABLET PO SCH (08:39)
[2020-12-09] MEDS: ZINC GLUCONATE 50 MG TABLET PO SCH (08:39)
[2020-12-09] MEDS: PIPERACILLIN/TAZOBACTAM 3,375 MG in SODIUM CHLORIDE 0.9% 100 ML IV SCH ×2 (09:25→17:20)
[2020-12-09] MEDS: ENOXAPARIN 30 MG/0.3 ML SYRINGE SUBCUT SCH (14:35)
[2020-12-09 20:10] LABS: Hematocrit 24.2 VOL% (42.0-52.0)
[2020-12-09 20:15] LABS: Hemoglobin 8.3 GM/DL (14.0-18.0)
[2020-12-09] MEDS: NOREPINEPHRINE 8 MG in SODIUM CHLORIDE 0.9% 242 ML IV PRN (22:53)
[2020-12-10] MEDS: INSULIN REGULAR 100 UNIT/ML SUBCUT SCH ×5 (00:17→23:52)
[2020-12-10] MEDS: ENOXAPARIN 30 MG/0.3 ML SYRINGE SUBCUT SCH ×3 (00:17→23:52)
[2020-12-10] MEDS: PIPERACILLIN/TAZOBACTAM 3,375 MG in SODIUM CHLORIDE 0.9% 100 ML IV SCH ×4 (00:35→23:52)
[2020-12-10] MEDS: ALBUTEROL INHALER 18 GM INH SCH ×4 (02:13→18:16)
[2020-12-10 03:55] LABS: ABG Base Excess 0.4 MMOL/L (-2.5-2.5); ABG HCO3 23.4 MMOL/L (20-26); ABG Oxygen Saturation 98.6 % (95-100); ABG PCO2 31.6 MM HG (35-48); ABG PH 7.488 (7.35-7.45); ABG PO2 195.8 MM HG (80-95); ABG TCO2 24.4 MMOL/L (23-27); Basophils % 0.1 % (0.0-0.8); Hemoglobin 8.2 GM/DL (14.0-18.0); Immature Granulocytes % 1.6 %; Immature Granulocytes Absolute 0.43 #; Lymphocytes # 0.7 10*3/uL (1.4-4.0); Lymphocytes % 2.4 % (21.2-54.2); Mean Corpuscular HGB Conc 34.2 GM/DL (32-36); Mean Corpuscular Volume 103.4 FL (87-102); Mean Platelet Volume 10.6 FL (9.6-12.0); Monocytes % 1.6 % (1.7-12.7); Neutrophils % 94.3 % (38.7-73.9); Platelet Count 330 T/CUMM (130-400); Red Blood Count 2.32 MC/CUMM (3.8-5.5); Red Cell Distribution Width 24.5 % (9.3-17.3); White Blood Count 27.4 T/CUMM (4-12)
[2020-12-10 04:19] LABS: Calcium 7.8 MG/DL (8.5-10.1); Osmolality,Calculated 295.5 MOS/KG (273-304); Potassium 4.2 MMOL/L (3.5-5.1)
[2020-12-10 04:21] LABS: Band Neutrophils 1 % (0-10); Lymphocytes 3 % (20-55); Platelet Estimate Adequate; Segmented Neutrophils 95 % (50-85); Total Cells Counted 100
[2020-12-10 04:22] LABS: Hypochromasia 1+; Microcytosis Slight
[2020-12-10 04:36] LABS: Ferritin 6941.2 ng/mL (26-388)
[2020-12-10] MEDS: LACTATED RINGERS 1,000 ML IV SCH ×3 (06:39→19:48)
[2020-12-10] MEDS: MIDAZOLAM 100 MG in SODIUM CHLORIDE 0.9% 80 ML IV PRN (07:00)
[2020-12-10] MEDS: DEXAMETHASONE 4 MG/1 ML VIAL IV SCH (08:55)
[2020-12-10] MEDS: PANTOPRAZOLE 40 MG VIAL IV SCH (09:00)
[2020-12-10] MEDS: CETIRIZINE 10 MG TABLET PO SCH (09:38)
[2020-12-10] MEDS: CHOLECALCIFEROL 1,000 UNIT TABLET PO SCH (09:38)
[2020-12-10] MEDS: ZINC GLUCONATE 50 MG TABLET PO SCH (09:38)
[2020-12-10] MEDS: ASCORBIC ACID 500 MG TABLET PO SCH ×2 (09:38→20:52)
[2020-12-11] MEDS: MIDAZOLAM 100 MG in SODIUM CHLORIDE 0.9% 80 ML IV PRN (00:18)
[2020-12-11] MEDS: ALBUTEROL INHALER 18 GM INH SCH ×3 (02:25→14:10)
[2020-12-11 05:06] LABS: ABG Base Excess 2.5 MMOL/L (-2.5-2.5); ABG HCO3 25.6 MMOL/L (20-26); ABG Oxygen Saturation 98.8 % (95-100); ABG PCO2 33.1 MM HG (35-48); ABG PH 7.506 (7.35-7.45); ABG PO2 197.3 MM HG (80-95); ABG TCO2 26.6 MMOL/L (23-27)
[2020-12-11 05:17] LABS: Basophils % 0.1 % (0.0-0.8); Hematocrit 24.6 VOL% (42.0-52.0); Hemoglobin 7.9 GM/DL (14.0-18.0); Immature Granulocytes % 1.3 %; Immature Granulocytes Absolute 0.21 #; Lymphocytes # 0.5 10*3/uL (1.4-4.0); Lymphocytes % 3.3 % (21.2-54.2); Mean Corpuscular HGB Conc 32.1 GM/DL (32-36); Mean Platelet Volume 10.8 FL (9.6-12.0); Monocytes % 2.7 % (1.7-12.7); Neutrophils % 92.6 % (38.7-73.9); Platelet Count 252 T/CUMM (130-400); Red Blood Count 2.32 MC/CUMM (3.8-5.5); Red Cell Distribution Width 24.9 % (9.3-17.3); White Blood Count 15.8 T/CUMM (4-12)
[2020-12-11 05:34] LABS: Albumin 1.6 G/DL (3.4-5.0); Bilirubin,Total 0.8 MG/DL (0.20-1.00); Calcium 7.7 MG/DL (8.5-10.1); Osmolality,Calculated 296.8 MOS/KG (273-304); Potassium 4.2 MMOL/L (3.5-5.1); Total Protein 5.4 G/DL (6.4-8.2)
[2020-12-11] MEDS: INSULIN REGULAR 100 UNIT/ML SUBCUT SCH ×3 (05:43→18:30)
[2020-12-11] MEDS: LACTATED RINGERS 1,000 ML IV SCH ×2 (05:52→09:12)
[2020-12-11 06:10] LABS: Anisocytosis 3+; Band Neutrophils 35 % (0-10); Lymphocytes 4 % (20-55); Macrocytosis 2+; Metamyelocytes 1 %; Platelet Estimate Normal; Segmented Neutrophils 58 % (50-85); Total Cells Counted 100
[2020-12-11] MEDS: PANTOPRAZOLE 40 MG VIAL IV SCH (08:23)
[2020-12-11] MEDS: DEXAMETHASONE 4 MG/1 ML VIAL IV SCH (08:23)
[2020-12-11] MEDS: CETIRIZINE 10 MG TABLET PO SCH (08:24)
[2020-12-11] MEDS: ZINC GLUCONATE 50 MG TABLET PO SCH (08:24)
[2020-12-11] MEDS: ASCORBIC ACID 500 MG TABLET PO SCH ×2 (08:24→20:56)
[2020-12-11] MEDS: CHOLECALCIFEROL 1,000 UNIT TABLET PO SCH (08:24)
[2020-12-11] MEDS: PIPERACILLIN/TAZOBACTAM 3,375 MG in SODIUM CHLORIDE 0.9% 100 ML IV SCH ×2 (09:06→16:45)
[2020-12-11] MEDS ORDERED: POTASSIUM PHOSPHATE 30 MMOL in SODIUM CHLORIDE 0.9% 250 ML IV ONE (10:00)
[2020-12-11] MEDS ORDERED: FUROSEMIDE 20 MG/2 ML VIAL IV ONE (10:01)
[2020-12-11] MEDS: ENOXAPARIN 30 MG/0.3 ML SYRINGE SUBCUT SCH (12:31)
[2020-12-11] MEDS: MORPHINE 2 MG/1 ML SYRINGE IV PRN (12:32)
[2020-12-11] MEDS ORDERED: PROPRANOLOL 10 MG TABLET PO ONE (15:29)
[2020-12-12] MEDS: ENOXAPARIN 30 MG/0.3 ML SYRINGE SUBCUT SCH ×2 (00:38→14:03)
[2020-12-12] MEDS: INSULIN REGULAR 100 UNIT/ML SUBCUT SCH ×4 (00:38→18:45)
[2020-12-12] MEDS: MORPHINE 2 MG/1 ML SYRINGE IV PRN ×2 (00:39→06:19)
[2020-12-12] MEDS: PIPERACILLIN/TAZOBACTAM 3,375 MG in SODIUM CHLORIDE 0.9% 100 ML IV SCH ×3 (00:42→17:21)
[2020-12-12] MEDS: ALBUTEROL INHALER 18 GM INH SCH ×5 (02:09→21:38)
[2020-12-12 03:30] LABS: ABG Base Excess 2.6 MMOL/L (-2.5-2.5); ABG HCO3 26.7 MMOL/L (20-26); ABG Oxygen Saturation 92.7 % (95-100); ABG PCO2 36.5 MM HG (35-48); ABG PH 7.465 (7.35-7.45); ABG PO2 62.1 MM HG (80-95); ABG TCO2 24.1 MMOL/L (23-27)
[2020-12-12 06:20] LABS: Basophils % 0.1 % (0.0-0.8); Eosinophils % 0.1 % (0.00-10.9); Hematocrit 29.4 VOL% (42.0-52.0); Immature Granulocytes % 1.4 %; Immature Granulocytes Absolute 0.28 #; Lymphocytes # 1.2 10*3/uL (1.4-4.0); Lymphocytes % 6.1 % (21.2-54.2); Mean Corpuscular Volume 109.7 FL (87-102); Mean Platelet Volume 11.4 FL (9.6-12.0); Monocytes % 2.8 % (1.7-12.7); Neutrophils % 89.5 % (38.7-73.9); Platelet Count 261 T/CUMM (130-400); Red Blood Count 2.68 MC/CUMM (3.8-5.5); Red Cell Distribution Width 24.9 % (9.3-17.3); White Blood Count 19.6 T/CUMM (4-12)
[2020-12-12 06:21] LABS: Calcium 7.8 MG/DL (8.5-10.1); Potassium 4.1 MMOL/L (3.5-5.1)
[2020-12-12 06:25] LABS: Hemoglobin 9.4 GM/DL (14.0-18.0)
[2020-12-12 06:39] LABS: Hypochromasia 1+; Lymphocytes 7 % (20-55); Microcytosis 1+; Platelet Estimate Adequate; Segmented Neutrophils 91 % (50-85); Total Cells Counted 100
[2020-12-12] MEDS: CETIRIZINE 10 MG TABLET PO SCH (09:01)
[2020-12-12] MEDS: ASCORBIC ACID 500 MG TABLET PO SCH ×2 (09:01→21:38)
[2020-12-12] MEDS: PROPRANOLOL 10 MG TABLET PO SCH ×2 (09:01→21:38)
[2020-12-12] MEDS: PANTOPRAZOLE 40 MG VIAL IV SCH (09:01)
[2020-12-12] MEDS: ZINC GLUCONATE 50 MG TABLET PO SCH (09:01)
[2020-12-12] MEDS: CHOLECALCIFEROL 1,000 UNIT TABLET PO SCH (09:01)
[2020-12-12] MEDS: DEXAMETHASONE 4 MG/1 ML VIAL IV SCH (09:02)
[2020-12-13] MEDS: INSULIN REGULAR 100 UNIT/ML SUBCUT SCH ×4 (00:50→19:12)
[2020-12-13] MEDS: ALBUTEROL INHALER 18 GM INH SCH ×4 (00:50→21:35)
[2020-12-13] MEDS: ENOXAPARIN 30 MG/0.3 ML SYRINGE SUBCUT SCH ×2 (00:50→13:17)
[2020-12-13] MEDS: PIPERACILLIN/TAZOBACTAM 3,375 MG in SODIUM CHLORIDE 0.9% 100 ML IV SCH ×2 (00:50→09:54)
[2020-12-13 03:46] LABS: ABG Base Excess 5.4 MMOL/L (-2.5-2.5); ABG HCO3 28.8 MMOL/L (20-26); ABG Oxygen Saturation 98.5 % (95-100); ABG PCO2 37.8 MM HG (35-48); ABG PO2 152.1 MM HG (80-95)
[2020-12-13 04:46] LABS: Basophils % 0.1 % (0.0-0.8); Eosinophils % 0.1 % (0.00-10.9); Hematocrit 29.7 VOL% (42.0-52.0); Hemoglobin 9.4 GM/DL (14.0-18.0); Immature Granulocytes % 1.1 %; Immature Granulocytes Absolute 0.21 #; Lymphocytes # 1.2 10*3/uL (1.4-4.0); Lymphocytes % 6.5 % (21.2-54.2); Mean Corpuscular HGB Conc 31.6 GM/DL (32-36); Mean Corpuscular Volume 112.5 FL (87-102); Mean Platelet Volume 11.4 FL (9.6-12.0); Monocytes % 2.2 % (1.7-12.7); Platelet Count 186 T/CUMM (130-400); Red Blood Count 2.64 MC/CUMM (3.8-5.5); Red Cell Distribution Width 24.2 % (9.3-17.3); White Blood Count 19.2 T/CUMM (4-12)
[2020-12-13 05:07] LABS: Osmolality,Calculated 294.8 MOS/KG (273-304); Potassium 4.1 MMOL/L (3.5-5.1)
[2020-12-13 05:16] LABS: Hypochromasia 1+; Lymphocytes 5 % (20-55); Microcytosis 1+; Platelet Estimate Adequate; Segmented Neutrophils 91 % (50-85); Total Cells Counted 100
[2020-12-13] MEDS: CETIRIZINE 10 MG TABLET PO SCH (09:00)
[2020-12-13] MEDS: PROPRANOLOL 10 MG TABLET PO SCH ×2 (09:00→21:35)
[2020-12-13] MEDS: DEXAMETHASONE 4 MG/1 ML VIAL IV SCH (09:00)
[2020-12-13] MEDS: PANTOPRAZOLE 40 MG VIAL IV SCH (09:00)
[2020-12-13] MEDS: ASCORBIC ACID 500 MG TABLET PO SCH ×2 (09:00→21:35)
[2020-12-13] MEDS: ZINC GLUCONATE 50 MG TABLET PO SCH (09:00)
[2020-12-13] MEDS: CHOLECALCIFEROL 1,000 UNIT TABLET PO SCH (09:00)
[2020-12-13] MEDS: CIPROFLOXACIN 100 MG/ML 100 ML/BOTTLE PO SCH ×2 (12:00→21:35)
[2020-12-14] MEDS: INSULIN REGULAR 100 UNIT/ML SUBCUT SCH ×4 (00:40→18:15)
[2020-12-14] MEDS: ENOXAPARIN 30 MG/0.3 ML SYRINGE SUBCUT SCH ×2 (00:40→12:00)
[2020-12-14] MEDS: ALBUTEROL INHALER 18 GM INH SCH (00:40)
[2020-12-14 05:12] LABS: Eosinophils # 0.1 10*3/uL (0.0-0.87); Eosinophils % 0.3 % (0.00-10.9); Hematocrit 29.5 VOL% (42.0-52.0); Hemoglobin 9.4 GM/DL (14.0-18.0); Immature Granulocytes % 1.1 %; Immature Granulocytes Absolute 0.25 #; Lymphocytes # 1.8 10*3/uL (1.4-4.0); Lymphocytes % 8.3 % (21.2-54.2); Mean Corpuscular HGB Conc 31.9 GM/DL (32-36); Mean Corpuscular Volume 111.7 FL (87-102); Mean Platelet Volume 11.4 FL (9.6-12.0); Monocytes % 3.1 % (1.7-12.7); Neutrophils % 87.2 % (38.7-73.9); Platelet Count 201 T/CUMM (130-400); Red Blood Count 2.64 MC/CUMM (3.8-5.5); White Blood Count 22.1 T/CUMM (4-12)
[2020-12-14 05:37] LABS: Calcium 7.9 MG/DL (8.5-10.1); Osmolality,Calculated 290.1 MOS/KG (273-304); Potassium 3.9 MMOL/L (3.5-5.1)
[2020-12-14 05:39] LABS: Anisocytosis 1+; Band Neutrophils 2 % (0-10); Hypochromasia 1+; Lymphocytes 7 % (20-55); Microcytosis 1+; Platelet Estimate Normal; Segmented Neutrophils 89 % (50-85); Total Cells Counted 100
[2020-12-14 05:41] LABS: Albumin 1.8 G/DL (3.4-5.0); Bilirubin,Total 1.8 MG/DL (0.20-1.00); Calcium 8.1 MG/DL (8.5-10.1); Osmolality,Calculated 293.8 MOS/KG (273-304); Potassium 3.7 MMOL/L (3.5-5.1); Total Protein 5.5 G/DL (6.4-8.2)
[2020-12-14] MEDS ORDERED: POTASSIUM CHLORIDE 20 MEQ PACK PO ONE (08:32)
[2020-12-14] MEDS: ROSUVASTATIN 10 MG TABLET PEG SCH (09:00)
[2020-12-14] MEDS ORDERED: ROSUVASTATIN 20 MG TABLET PEG SCH (09:00)
[2020-12-14] MEDS: DEXAMETHASONE 4 MG/1 ML VIAL IV SCH (09:30)
[2020-12-14] MEDS: ASCORBIC ACID 500 MG TABLET PO SCH ×2 (09:30→20:51)
[2020-12-14] MEDS: PROPRANOLOL 10 MG TABLET PO SCH ×2 (09:30→20:51)
[2020-12-14] MEDS: CETIRIZINE 10 MG TABLET PO SCH (09:30)
[2020-12-14] MEDS: ZINC GLUCONATE 50 MG TABLET PO SCH (09:30)
[2020-12-14] MEDS: PANTOPRAZOLE 40 MG VIAL IV SCH (09:30)
[2020-12-14] MEDS: CHOLECALCIFEROL 1,000 UNIT TABLET PO SCH (09:30)
[2020-12-14] MEDS: CIPROFLOXACIN 100 MG/ML 100 ML/BOTTLE PO SCH ×2 (10:49→20:52)
[2020-12-14 11:42] LABS: ABG Base Excess 4.6 MMOL/L (-2.5-2.5); ABG HCO3 28.5 MMOL/L (20-26); ABG Oxygen Saturation 96.2 % (95-100); ABG PCO2 31.2 MM HG (35-48); ABG PH 7.541 (7.35-7.45); ABG PO2 72.3 MM HG (80-95); ABG TCO2 24.1 MMOL/L (23-27); Allen Test Positive
[2020-12-15] MEDS: ENOXAPARIN 30 MG/0.3 ML SYRINGE SUBCUT SCH ×2 (00:53→21:21)
[2020-12-15] MEDS: INSULIN REGULAR 100 UNIT/ML SUBCUT SCH ×4 (01:08→19:03)
[2020-12-15 04:42] LABS: ABG Base Excess 3.8 MMOL/L (-2.5-2.5); ABG HCO3 25.7 MMOL/L (20-26); ABG Oxygen Saturation 92.1 % (95-100); ABG PCO2 29.5 MM HG (35-48); ABG PH 7.558 (7.35-7.45); ABG TCO2 26.6 MMOL/L (23-27)
[2020-12-15 05:26] LABS: Basophils % 0.1 % (0.0-0.8); Eosinophils % 0.1 % (0.00-10.9); Hematocrit 29.6 VOL% (42.0-52.0); Hemoglobin 9.3 GM/DL (14.0-18.0); Immature Granulocytes Absolute 0.17 #; Lymphocytes # 1.3 10*3/uL (1.4-4.0); Lymphocytes % 7.4 % (21.2-54.2); Mean Corpuscular HGB Conc 31.4 GM/DL (32-36); Mean Corpuscular Volume 113.8 FL (87-102); Mean Platelet Volume 11.4 FL (9.6-12.0); Monocytes % 3.5 % (1.7-12.7); Neutrophils % 87.9 % (38.7-73.9); Platelet Count 209 T/CUMM (130-400); Red Cell Distribution Width 24.6 % (9.3-17.3); White Blood Count 17.6 T/CUMM (4-12)
[2020-12-15 05:49] LABS: Band Neutrophils 1 % (0-10); Lymphocytes 6 % (20-55); Platelet Estimate Normal; Segmented Neutrophils 91 % (50-85); Total Cells Counted 100
[2020-12-15 05:50] LABS: Macrocytosis Slight
[2020-12-15 07:00] LABS: Calcium 8.1 MG/DL (8.5-10.1); Osmolality,Calculated 295.7 MOS/KG (273-304); Potassium 3.7 MMOL/L (3.5-5.1)
[2020-12-15] MEDS: ALBUTEROL INHALER 18 GM INH SCH ×2 (10:34→14:40)
[2020-12-15] MEDS: PROPRANOLOL 10 MG TABLET PO SCH ×2 (10:35→21:20)
[2020-12-15] MEDS: DEXAMETHASONE 4 MG/1 ML VIAL IV SCH (10:35)
[2020-12-15] MEDS: CIPROFLOXACIN 100 MG/ML 100 ML/BOTTLE PO SCH ×2 (10:35→21:20)
[2020-12-15] MEDS: ROSUVASTATIN 10 MG TABLET PEG SCH (10:35)
[2020-12-15] MEDS: PANTOPRAZOLE 40 MG VIAL IV SCH (10:35)
[2020-12-15] MEDS: ASCORBIC ACID 500 MG TABLET PO SCH ×2 (10:36→21:22)
[2020-12-15] MEDS: CETIRIZINE 10 MG TABLET PO SCH (10:36)
[2020-12-15] MEDS: CHOLECALCIFEROL 1,000 UNIT TABLET PO SCH (10:36)
[2020-12-15] MEDS: ZINC GLUCONATE 50 MG TABLET PO SCH (10:36)
[2020-12-16] MEDS: INSULIN REGULAR 100 UNIT/ML SUBCUT SCH ×4 (01:10→18:30)
[2020-12-16 05:19] LABS: Basophils % 0.1 % (0.0-0.8); Eosinophils # 0.1 10*3/uL (0.0-0.87); Eosinophils % 0.3 % (0.00-10.9); Hematocrit 27.5 VOL% (42.0-52.0); Hemoglobin 8.7 GM/DL (14.0-18.0); Lymphocytes # 1.7 10*3/uL (1.4-4.0); Lymphocytes % 8.6 % (21.2-54.2); Mean Corpuscular HGB Conc 31.6 GM/DL (32-36); Mean Corpuscular Volume 114.6 FL (87-102); Mean Platelet Volume 11.4 FL (9.6-12.0); Monocytes % 3.9 % (1.7-12.7); Neutrophils % 86.1 % (38.7-73.9); Platelet Count 210 T/CUMM (130-400); Red Cell Distribution Width 24.1 % (9.3-17.3); White Blood Count 19.7 T/CUMM (4-12)
[2020-12-16 05:38] LABS: Osmolality,Calculated 297.7 MOS/KG (273-304); Potassium 3.1 MMOL/L (3.5-5.1)
[2020-12-16 05:42] LABS: Band Neutrophils 4 % (0-10); Hypochromasia 1+; Lymphocytes 6 % (20-55); Polychromasia Slight; Segmented Neutrophils 85 % (50-85); Total Cells Counted 100
[2020-12-16 05:43] LABS: Macrocytosis 1+; Platelet Estimate Normal
[2020-12-16] MEDS: ALBUTEROL INHALER 18 GM INH SCH ×2 (07:00→13:00)
[2020-12-16] MEDS: ROSUVASTATIN 10 MG TABLET PEG SCH (08:52)
[2020-12-16] MEDS: CETIRIZINE 10 MG TABLET PO SCH (08:52)
[2020-12-16] MEDS: PROPRANOLOL 10 MG TABLET PO SCH ×2 (08:52→21:50)
[2020-12-16] MEDS: ASCORBIC ACID 500 MG TABLET PO SCH ×2 (08:52→21:50)
[2020-12-16] MEDS: ZINC GLUCONATE 50 MG TABLET PO SCH (08:52)
[2020-12-16] MEDS: CHOLECALCIFEROL 1,000 UNIT TABLET PO SCH (08:52)
[2020-12-16] MEDS: DEXAMETHASONE 4 MG/1 ML VIAL IV SCH (08:54)
[2020-12-16] MEDS: ACETAMINOPHEN 325 MG TABLET PO PRN (08:54)
[2020-12-16] MEDS: PANTOPRAZOLE 40 MG VIAL IV SCH (08:57)
[2020-12-16] MEDS: ENOXAPARIN 30 MG/0.3 ML SYRINGE SUBCUT SCH ×2 (08:57→21:51)
[2020-12-16] MEDS: CIPROFLOXACIN 100 MG/ML 100 ML/BOTTLE PO SCH ×2 (08:59→21:50)
[2020-12-16 09:02] LABS: Albumin 1.9 G/DL (3.4-5.0); Bilirubin,Direct 0.14 MG/DL (0.0-0.20); Bilirubin,Indirect 0.6 MG/DL (0.0-1.0); Bilirubin,Total 0.7 MG/DL (0.20-1.00); Total Protein 5.4 G/DL (6.4-8.2)
[2020-12-16] MEDS ORDERED: POTASSIUM CHLORIDE 20 MEQ TABLET PO ONE (09:03)
[2020-12-17] MEDS: INSULIN REGULAR 100 UNIT/ML SUBCUT SCH ×4 (00:01→18:04)
[2020-12-17 05:48] LABS: Basophils % 0.1 % (0.0-0.8); Eosinophils # 0.2 10*3/uL (0.0-0.87); Eosinophils % 1.7 % (0.00-10.9); Hematocrit 23.8 VOL% (42.0-52.0); Hemoglobin 7.6 GM/DL (14.0-18.0); Immature Granulocytes % 0.7 %; Immature Granulocytes Absolute 0.09 #; Lymphocytes # 1.8 10*3/uL (1.4-4.0); Lymphocytes % 13.4 % (21.2-54.2); Mean Corpuscular HGB Conc 31.9 GM/DL (32-36); Mean Corpuscular Volume 112.8 FL (87-102); Mean Platelet Volume 11.3 FL (9.6-12.0); Monocytes % 4.8 % (1.7-12.7); Neutrophils % 79.3 % (38.7-73.9); Platelet Count 179 T/CUMM (130-400); Red Blood Count 2.11 MC/CUMM (3.8-5.5); Red Cell Distribution Width 24.1 % (9.3-17.3); White Blood Count 13.5 T/CUMM (4-12)
[2020-12-17 06:09] LABS: Hypochromasia 1+; Lymphocytes 9 % (20-55); Microcytosis 1+; Platelet Estimate Adequate; Segmented Neutrophils 88 % (50-85); Total Cells Counted 100
[2020-12-17 06:11] LABS: Calcium 7.7 MG/DL (8.5-10.1); Potassium 3.7 MMOL/L (3.5-5.1)
[2020-12-17 06:17] LABS: Albumin 1.8 G/DL (3.4-5.0); Bilirubin,Total 0.9 MG/DL (0.20-1.00); Calcium 7.9 MG/DL (8.5-10.1); Osmolality,Calculated 290.1 MOS/KG (273-304); Potassium 3.6 MMOL/L (3.5-5.1); Total Protein 5.2 G/DL (6.4-8.2)
[2020-12-17] MEDS: ALBUTEROL INHALER 18 GM INH SCH ×2 (07:05→13:15)
[2020-12-17] MEDS: ROSUVASTATIN 10 MG TABLET PEG SCH (08:25)
[2020-12-17] MEDS: CETIRIZINE 10 MG TABLET PO SCH (08:25)
[2020-12-17] MEDS: PROPRANOLOL 10 MG TABLET PO SCH ×2 (08:25→20:16)
[2020-12-17] MEDS: CHOLECALCIFEROL 1,000 UNIT TABLET PO SCH (08:26)
[2020-12-17] MEDS: ZINC GLUCONATE 50 MG TABLET PO SCH (08:26)
[2020-12-17] MEDS: ASCORBIC ACID 500 MG TABLET PO SCH ×2 (08:26→20:15)
[2020-12-17] MEDS: ENOXAPARIN 30 MG/0.3 ML SYRINGE SUBCUT SCH ×2 (08:27→20:16)
[2020-12-17] MEDS: PANTOPRAZOLE 40 MG VIAL IV SCH (08:28)
[2020-12-17] MEDS: DEXAMETHASONE 4 MG/1 ML VIAL IV SCH (08:31)
[2020-12-17] MEDS: CIPROFLOXACIN 100 MG/ML 100 ML/BOTTLE PO SCH ×2 (08:32→20:16)
[2020-12-17] MEDS: ACETAMINOPHEN 325 MG TABLET PO PRN (20:23)
[2020-12-18 05:21] LABS: Calcium 7.7 MG/DL (8.5-10.1); Osmolality,Calculated 282.4 MOS/KG (273-304); Potassium 3.5 MMOL/L (3.5-5.1)
[2020-12-18 05:22] LABS: Basophils % 0.1 % (0.0-0.8); Eosinophils # 0.2 10*3/uL (0.0-0.87); Eosinophils % 1.3 % (0.00-10.9); Hematocrit 23.2 VOL% (42.0-52.0); Hemoglobin 7.5 GM/DL (14.0-18.0); Immature Granulocytes % 0.6 %; Immature Granulocytes Absolute 0.07 #; Lymphocytes # 1.7 10*3/uL (1.4-4.0); Lymphocytes % 13.9 % (21.2-54.2); Mean Corpuscular HGB Conc 32.3 GM/DL (32-36); Mean Platelet Volume 11.5 FL (9.6-12.0); Monocytes % 3.9 % (1.7-12.7); Neutrophils % 80.2 % (38.7-73.9); Platelet Count 184 T/CUMM (130-400); Red Blood Count 2.09 MC/CUMM (3.8-5.5); Red Cell Distribution Width 23.9 % (9.3-17.3); White Blood Count 11.9 T/CUMM (4-12)
[2020-12-18] MEDS: INSULIN REGULAR 100 UNIT/ML SUBCUT SCH ×4 (05:59→17:55)
[2020-12-18 06:25] LABS: Anisocytosis 1+; Band Neutrophils 5 % (0-10); Eosinophils 1 % (0-10); Hypochromasia 1+; Lymphocytes 9 % (20-55); Microcytosis 1+; Platelet Estimate Adequate; Segmented Neutrophils 84 % (50-85); Total Cells Counted 100
[2020-12-18] MEDS: ALBUTEROL INHALER 18 GM INH SCH ×2 (07:15→14:00)
[2020-12-18] MEDS: ZINC GLUCONATE 50 MG TABLET PO SCH (09:35)
[2020-12-18] MEDS: ASCORBIC ACID 500 MG TABLET PO SCH ×2 (09:35→20:54)
[2020-12-18] MEDS: ROSUVASTATIN 10 MG TABLET PEG SCH (09:35)
[2020-12-18] MEDS: CHOLECALCIFEROL 1,000 UNIT TABLET PO SCH (09:35)
[2020-12-18] MEDS: CETIRIZINE 10 MG TABLET PO SCH (09:35)
[2020-12-18] MEDS: PANTOPRAZOLE 40 MG VIAL IV SCH (09:36)
[2020-12-18] MEDS: ENOXAPARIN 30 MG/0.3 ML SYRINGE SUBCUT SCH ×2 (09:37→20:54)
[2020-12-18] MEDS: CIPROFLOXACIN 100 MG/ML 100 ML/BOTTLE PO SCH ×2 (09:37→20:54)
[2020-12-18] MEDS: PROPRANOLOL 10 MG TABLET PO SCH ×3 (09:37→20:54)
[2020-12-18] MEDS ORDERED: TUBERCULIN SKIN TEST 0.1 ML SYRINGE INTRADERM ONE (15:00)
[2020-12-19] MEDS: INSULIN REGULAR 100 UNIT/ML SUBCUT SCH ×4 (01:04→17:59)
[2020-12-19 06:52] LABS: Basophils % 0.2 % (0.0-0.8); Eosinophils # 0.3 10*3/uL (0.0-0.87); Eosinophils % 2.1 % (0.00-10.9); Hematocrit 21.1 VOL% (42.0-52.0); Immature Granulocytes % 0.6 %; Immature Granulocytes Absolute 0.07 #; Lymphocytes # 1.5 10*3/uL (1.4-4.0); Lymphocytes % 12.5 % (21.2-54.2); Mean Corpuscular HGB Conc 33.2 GM/DL (32-36); Mean Corpuscular Volume 111.1 FL (87-102); Mean Platelet Volume 11.4 FL (9.6-12.0); Monocytes % 5.1 % (1.7-12.7); Neutrophils % 79.5 % (38.7-73.9); Platelet Count 187 T/CUMM (130-400); White Blood Count 12.1 T/CUMM (4-12)
[2020-12-19 07:05] LABS: Calcium 7.7 MG/DL (8.5-10.1); Osmolality,Calculated 282.5 MOS/KG (273-304); Potassium 3.3 MMOL/L (3.5-5.1)
[2020-12-19 07:46] LABS: Anisocytosis 3+; Band Neutrophils 15 % (0-10); Eosinophils 2 % (0-10); Lymphocytes 14 % (20-55); Platelet Estimate Normal; Segmented Neutrophils 66 % (50-85); Spherocytes Few; Total Cells Counted 100
[2020-12-19] MEDS ORDERED: SODIUM CHLORIDE 0.9% 1,000 ML IV PRN (07:46)
[2020-12-19 07:47] LABS: Burr Cells Few; Macrocytosis 1+; Smudge Cells Few
[2020-12-19] MEDS ORDERED: POTASSIUM CHLORIDE 20 MEQ TABLET PO ONE (07:47)
[2020-12-19] MEDS: CIPROFLOXACIN 100 MG/ML 100 ML/BOTTLE PO SCH ×2 (08:33→20:01)
[2020-12-19] MEDS: PANTOPRAZOLE 40 MG VIAL IV SCH (08:33)
[2020-12-19] MEDS: ROSUVASTATIN 10 MG TABLET PEG SCH (08:34)
[2020-12-19] MEDS: CHOLECALCIFEROL 1,000 UNIT TABLET PO SCH (08:34)
[2020-12-19] MEDS: CETIRIZINE 10 MG TABLET PO SCH (08:34)
[2020-12-19] MEDS: ASCORBIC ACID 500 MG TABLET PO SCH ×2 (08:34→20:01)
[2020-12-19] MEDS: ZINC GLUCONATE 50 MG TABLET PO SCH (08:34)
[2020-12-19] MEDS: PROPRANOLOL 10 MG TABLET PO SCH ×2 (08:34→20:01)
[2020-12-19] MEDS: ENOXAPARIN 30 MG/0.3 ML SYRINGE SUBCUT SCH ×2 (08:35→20:01)
[2020-12-19 19:12] LABS: Hemoglobin 10.5 GM/DL (14.0-18.0)
[2020-12-19] MEDS: ACETAMINOPHEN 325 MG TABLET PO PRN (20:02)
[2020-12-20] MEDS: INSULIN REGULAR 100 UNIT/ML SUBCUT SCH ×3 (00:08→12:29)
[2020-12-20 05:34] LABS: Basophils # 0.1 10*3/uL (0.0-0.2); Basophils % 0.4 % (0.0-0.8); Eosinophils # 0.3 10*3/uL (0.0-0.87); Eosinophils % 2.2 % (0.00-10.9); Hemoglobin 10.6 GM/DL (14.0-18.0); Immature Granulocytes % 0.6 %; Immature Granulocytes Absolute 0.07 #; Lymphocytes # 1.2 10*3/uL (1.4-4.0); Lymphocytes % 10.1 % (21.2-54.2); Mean Corpuscular HGB Conc 35.3 GM/DL (32-36); Mean Corpuscular Volume 99.3 FL (87-102); Mean Platelet Volume 11.1 FL (9.6-12.0); Monocytes % 4.2 % (1.7-12.7); Neutrophils % 82.5 % (38.7-73.9); Platelet Count 164 T/CUMM (130-400); Red Cell Distribution Width 23.1 % (9.3-17.3); White Blood Count 12.2 T/CUMM (4-12)
[2020-12-20 05:44] LABS: Red Blood Count 3.02 MC/CUMM (3.8-5.5)
[2020-12-20 06:01] LABS: Calcium 7.6 MG/DL (8.5-10.1); Osmolality,Calculated 283.4 MOS/KG (273-304); Potassium 3.1 MMOL/L (3.5-5.1)
[2020-12-20] MEDS: CIPROFLOXACIN 100 MG/ML 100 ML/BOTTLE PO SCH ×2 (08:27→20:04)
[2020-12-20] MEDS: ENOXAPARIN 30 MG/0.3 ML SYRINGE SUBCUT SCH ×2 (08:28→20:04)
[2020-12-20] MEDS: ZINC GLUCONATE 50 MG TABLET PO SCH (08:29)
[2020-12-20] MEDS: CETIRIZINE 10 MG TABLET PO SCH (08:29)
[2020-12-20] MEDS: PROPRANOLOL 10 MG TABLET PO SCH ×2 (08:29→20:04)
[2020-12-20] MEDS: ASCORBIC ACID 500 MG TABLET PO SCH ×2 (08:29→20:05)
[2020-12-20] MEDS: ROSUVASTATIN 10 MG TABLET PEG SCH (08:29)
[2020-12-20] MEDS: CHOLECALCIFEROL 1,000 UNIT TABLET PO SCH (08:29)
[2020-12-20] MEDS: PANTOPRAZOLE 40 MG VIAL IV SCH (08:29)
[2020-12-20 08:34] LABS: Anisocytosis 3+; Band Neutrophils 24 % (0-10); Burr Cells Few; Eosinophils 6 % (0-10); Lymphocytes 10 % (20-55); Platelet Estimate Normal; Segmented Neutrophils 55 % (50-85); Total Cells Counted 100
[2020-12-20 08:35] LABS: Macrocytosis 1+; Spherocytes Few
[2020-12-20] MEDS: POTASSIUM BICARB EFFERVESCENT 20 MEQ TAB.EFF PER TUBE PRN ×4 (08:39→23:46)
[2020-12-20] MEDS: ALBUTEROL INHALER 18 GM INH SCH (20:50)
[2020-12-21 07:02] LABS: Calcium 7.8 MG/DL (8.5-10.1); Osmolality,Calculated 276.8 MOS/KG (273-304); Potassium 3.9 MMOL/L (3.5-5.1)
[2020-12-21 07:16] LABS: Basophils # 0.1 10*3/uL (0.0-0.2); Basophils % 0.6 % (0.0-0.8); Eosinophils # 0.2 10*3/uL (0.0-0.87); Eosinophils % 1.6 % (0.00-10.9); Hematocrit 34.8 VOL% (42.0-52.0); Hemoglobin 11.6 GM/DL (14.0-18.0); Immature Granulocytes % 0.4 %; Immature Granulocytes Absolute 0.04 #; Lymphocytes % 10.4 % (21.2-54.2); Mean Corpuscular HGB Conc 33.3 GM/DL (32-36); Mean Corpuscular Volume 100.6 FL (87-102); Mean Platelet Volume 10.9 FL (9.6-12.0); Monocytes % 3.4 % (1.7-12.7); Neutrophils % 83.6 % (38.7-73.9); Platelet Count 128 T/CUMM (130-400); Red Blood Count 3.46 MC/CUMM (3.8-5.5); Red Cell Distribution Width 23.4 % (9.3-17.3)
[2020-12-21 07:39] LABS: Band Neutrophils 1 % (0-10); Hypochromasia Slight; Lymphocytes 10 % (20-55); Microcytosis Slight; Platelet Estimate Normal; Segmented Neutrophils 84 % (50-85); Total Cells Counted 100
[2020-12-21] MEDS: ALBUTEROL INHALER 18 GM INH SCH ×2 (07:52→13:00)
[2020-12-21] MEDS: ZINC GLUCONATE 50 MG TABLET PO SCH (08:31)
[2020-12-21] MEDS: CETIRIZINE 10 MG TABLET PO SCH (08:31)
[2020-12-21] MEDS: PROPRANOLOL 10 MG TABLET PO SCH ×2 (08:31→21:36)
[2020-12-21] MEDS: CHOLECALCIFEROL 1,000 UNIT TABLET PO SCH (08:31)
[2020-12-21] MEDS: ROSUVASTATIN 10 MG TABLET PEG SCH (08:31)
[2020-12-21] MEDS: ASCORBIC ACID 500 MG TABLET PO SCH ×2 (08:31→21:39)
[2020-12-21] MEDS: PANTOPRAZOLE 40 MG VIAL IV SCH (08:31)
[2020-12-21] MEDS: ENOXAPARIN 30 MG/0.3 ML SYRINGE SUBCUT SCH ×2 (08:32→21:37)
[2020-12-22] MEDS: ALBUTEROL INHALER 18 GM INH SCH ×3 (07:42→19:00)
[2020-12-22 07:43] LABS: Basophils % 0.3 % (0.0-0.8); Eosinophils # 0.1 10*3/uL (0.0-0.87); Eosinophils % 1.1 % (0.00-10.9); Hematocrit 25.9 VOL% (42.0-52.0); Immature Granulocytes % 0.7 %; Immature Granulocytes Absolute 0.08 #; Lymphocytes # 1.5 10*3/uL (1.4-4.0); Lymphocytes % 13.1 % (21.2-54.2); Mean Corpuscular HGB Conc 32.8 GM/DL (32-36); Mean Platelet Volume 10.9 FL (9.6-12.0); Monocytes % 4.2 % (1.7-12.7); Neutrophils % 80.6 % (38.7-73.9); Platelet Count 144 T/CUMM (130-400); Red Cell Distribution Width 22.4 % (9.3-17.3); White Blood Count 11.7 T/CUMM (4-12)
[2020-12-22 07:52] LABS: Hemoglobin 8.5 GM/DL (14.0-18.0); Red Blood Count 2.54 MC/CUMM (3.8-5.5)
[2020-12-22 07:53] LABS: Calcium 7.7 MG/DL (8.5-10.1); Osmolality,Calculated 274.1 MOS/KG (273-304); Potassium 3.4 MMOL/L (3.5-5.1)
[2020-12-22 08:20] LABS: Band Neutrophils 2 % (0-10); Eosinophils 1 % (0-10); Hypochromasia 1+; Lymphocytes 14 % (20-55); Microcytosis 1+; Platelet Estimate Adequate; Segmented Neutrophils 82 % (50-85); Total Cells Counted 100
[2020-12-22] MEDS: ASCORBIC ACID 500 MG TABLET PO SCH ×2 (08:29→20:06)
[2020-12-22] MEDS: ROSUVASTATIN 10 MG TABLET PEG SCH (08:29)
[2020-12-22] MEDS: ZINC GLUCONATE 50 MG TABLET PO SCH (08:30)
[2020-12-22] MEDS: ENOXAPARIN 30 MG/0.3 ML SYRINGE SUBCUT SCH ×2 (08:30→20:06)
[2020-12-22] MEDS: CETIRIZINE 10 MG TABLET PO SCH (08:30)
[2020-12-22] MEDS: CHOLECALCIFEROL 1,000 UNIT TABLET PO SCH (08:30)
[2020-12-22] MEDS: PANTOPRAZOLE 40 MG VIAL IV SCH (08:31)
[2020-12-22] MEDS: PROPRANOLOL 10 MG TABLET PO SCH ×2 (09:29→20:06)
[2020-12-22 13:40] LABS: Hematocrit 25.1 VOL% (42.0-52.0); Hemoglobin 8.2 GM/DL (14.0-18.0)
[2020-12-22] MEDS: POTASSIUM BICARB EFFERVESCENT 20 MEQ TAB.EFF PER TUBE PRN ×3 (17:36→22:06)
[2020-12-22] MEDS: ACETAMINOPHEN 325 MG TABLET PO PRN (20:45)
[2020-12-23] MEDS: ALBUTEROL INHALER 18 GM INH SCH ×2 (05:01→07:52)
[2020-12-23 06:40] LABS: Hematocrit 24.3 VOL% (42.0-52.0); Hemoglobin 8.1 GM/DL (14.0-18.0)
[2020-12-23 07:31] LABS: Potassium 3.9 MMOL/L (3.5-5.1)
[2020-12-23] MEDS: ENOXAPARIN 30 MG/0.3 ML SYRINGE SUBCUT SCH ×2 (08:52→20:10)
[2020-12-23] MEDS: ROSUVASTATIN 10 MG TABLET PEG SCH (08:53)
[2020-12-23] MEDS: ASCORBIC ACID 500 MG TABLET PO SCH ×2 (08:53→20:13)
[2020-12-23] MEDS: CETIRIZINE 10 MG TABLET PO SCH (08:53)
[2020-12-23] MEDS: PROPRANOLOL 10 MG TABLET PO SCH ×2 (08:54→20:10)
[2020-12-23] MEDS: ZINC GLUCONATE 50 MG TABLET PO SCH (08:54)
[2020-12-23] MEDS: CHOLECALCIFEROL 1,000 UNIT TABLET PO SCH (08:54)
[2020-12-23] MEDS: OMEPRAZOLE ODT 20 MG TABLET NG SCH (09:20)
[2020-12-23] MEDS ORDERED: LORazepam 0.5 MG TABLET PEG ONE (23:57)
[2020-12-24 05:02] LABS: Basophils # 0.1 10*3/uL (0.0-0.2); Basophils % 1.7 % (0.0-0.8); Eosinophils # 0.1 10*3/uL (0.0-0.87); Eosinophils % 1.8 % (0.00-10.9); Hematocrit 23.2 VOL% (42.0-52.0); Hemoglobin 7.7 GM/DL (14.0-18.0); Immature Granulocytes % 0.7 %; Immature Granulocytes Absolute 0.05 #; Lymphocytes # 1.5 10*3/uL (1.4-4.0); Mean Corpuscular HGB Conc 33.2 GM/DL (32-36); Mean Corpuscular Volume 104.5 FL (87-102); Mean Platelet Volume 10.9 FL (9.6-12.0); Monocytes % 6.8 % (1.7-12.7); Platelet Count 183 T/CUMM (130-400); Red Blood Count 2.22 MC/CUMM (3.8-5.5); Red Cell Distribution Width 21.9 % (9.3-17.3); White Blood Count 7.7 T/CUMM (4-12)
[2020-12-24 05:24] LABS: Albumin 1.7 G/DL (3.4-5.0); Bilirubin,Total 0.5 MG/DL (0.20-1.00); Calcium 7.8 MG/DL (8.5-10.1); Eosinophils 2 % (0-10); Hypochromasia 1+; Lymphocytes 19 % (20-55); Microcytosis 1+; Osmolality,Calculated 276.1 MOS/KG (273-304); Platelet Estimate Adequate; Potassium 3.9 MMOL/L (3.5-5.1); Segmented Neutrophils 71 % (50-85); Total Cells Counted 100; Total Protein 5.2 G/DL (6.4-8.2)
[2020-12-24] MEDS: CHOLECALCIFEROL 1,000 UNIT TABLET PO SCH (08:12)
[2020-12-24] MEDS: OMEPRAZOLE ODT 20 MG TABLET NG SCH (08:12)
[2020-12-24] MEDS: ASCORBIC ACID 500 MG TABLET PO SCH ×2 (08:12→20:39)
[2020-12-24] MEDS: CETIRIZINE 10 MG TABLET PO SCH (08:12)
[2020-12-24] MEDS: ROSUVASTATIN 10 MG TABLET PEG SCH (08:12)
[2020-12-24] MEDS: PROPRANOLOL 10 MG TABLET PO SCH ×2 (08:12→20:49)
[2020-12-24] MEDS: ENOXAPARIN 30 MG/0.3 ML SYRINGE SUBCUT SCH ×2 (08:12→20:36)
[2020-12-24] MEDS: ZINC GLUCONATE 50 MG TABLET PO SCH (08:15)
[2020-12-24] MEDS: QUEtiapine 25 MG TABLET PO SCH (14:07)
[2020-12-24] MEDS: ALBUTEROL INHALER 18 GM INH SCH (20:36)
[2020-12-25 05:08] LABS: Hematocrit 24.2 VOL% (42.0-52.0); Hemoglobin 7.8 GM/DL (14.0-18.0)
[2020-12-25] MEDS: ALBUTEROL INHALER 18 GM INH SCH (08:09)
[2020-12-25] MEDS: OMEPRAZOLE ODT 20 MG TABLET NG SCH (09:52)
[2020-12-25] MEDS: QUEtiapine 25 MG TABLET PO SCH (09:52)
[2020-12-25] MEDS: ROSUVASTATIN 10 MG TABLET PEG SCH (09:52)
[2020-12-25] MEDS: PROPRANOLOL 10 MG TABLET PO SCH ×2 (09:52→20:23)
[2020-12-25] MEDS: CETIRIZINE 10 MG TABLET PO SCH (09:53)
[2020-12-25] MEDS: CHOLECALCIFEROL 1,000 UNIT TABLET PO SCH (09:53)
[2020-12-25] MEDS: ZINC GLUCONATE 50 MG TABLET PO SCH (09:53)
[2020-12-25] MEDS: ASCORBIC ACID 500 MG TABLET PO SCH ×2 (09:53→20:23)
[2020-12-25] MEDS: ENOXAPARIN 30 MG/0.3 ML SYRINGE SUBCUT SCH ×2 (09:58→20:23)
[2020-12-26 03:56] LABS: Hematocrit 22.3 VOL% (42.0-52.0); Hemoglobin 7.1 GM/DL (14.0-18.0)
[2020-12-26] MEDS: ALBUTEROL INHALER 18 GM INH SCH ×2 (08:00→13:23)
[2020-12-26] MEDS: CHOLECALCIFEROL 1,000 UNIT TABLET PO SCH (08:52)
[2020-12-26] MEDS: OMEPRAZOLE ODT 20 MG TABLET NG SCH (08:53)
[2020-12-26] MEDS: CETIRIZINE 10 MG TABLET PO SCH (08:53)
[2020-12-26] MEDS: ZINC GLUCONATE 50 MG TABLET PO SCH (08:53)
[2020-12-26] MEDS: PROPRANOLOL 10 MG TABLET PO SCH ×2 (08:53→21:25)
[2020-12-26] MEDS: ASCORBIC ACID 500 MG TABLET PO SCH ×2 (08:53→21:25)
[2020-12-26] MEDS: ROSUVASTATIN 10 MG TABLET PEG SCH (08:54)
[2020-12-26] MEDS: ENOXAPARIN 30 MG/0.3 ML SYRINGE SUBCUT SCH ×2 (08:54→21:25)
[2020-12-26] MEDS: QUEtiapine 25 MG TABLET PO SCH (08:55)
[2020-12-27 05:16] LABS: Albumin 1.9 G/DL (3.4-5.0); Bilirubin,Total 0.7 MG/DL (0.20-1.00); Calcium 8.7 MG/DL (8.5-10.1); Osmolality,Calculated 281.5 MOS/KG (273-304); Potassium 3.8 MMOL/L (3.5-5.1); Total Protein 5.6 G/DL (6.4-8.2)
[2020-12-27 07:27] LABS: Basophils # 0.1 10*3/uL (0.0-0.2); Basophils % 2.3 % (0.0-0.8); Eosinophils # 0.2 10*3/uL (0.0-0.87); Eosinophils % 3.3 % (0.00-10.9); Hematocrit 22.4 VOL% (42.0-52.0); Hemoglobin 7.2 GM/DL (14.0-18.0); Immature Granulocytes Absolute 0.06 #; Lymphocytes # 1.6 10*3/uL (1.4-4.0); Lymphocytes % 26.8 % (21.2-54.2); Mean Corpuscular HGB Conc 32.1 GM/DL (32-36); Mean Corpuscular Volume 106.2 FL (87-102); Mean Platelet Volume 10.2 FL (9.6-12.0); Monocytes % 6.2 % (1.7-12.7); Neutrophils % 60.4 % (38.7-73.9); Platelet Count 285 T/CUMM (130-400); Red Blood Count 2.11 MC/CUMM (3.8-5.5)
[2020-12-27 07:48] LABS: Band Neutrophils 6 % (0-10); Eosinophils 7 % (0-10); Hypochromasia 1+; Lymphocytes 22 % (20-55); Segmented Neutrophils 61 % (50-85); Total Cells Counted 100
[2020-12-27 07:49] LABS: Microcytosis 1+; Platelet Estimate Normal
[2020-12-27] MEDS: ALBUTEROL INHALER 18 GM INH SCH (08:07)
[2020-12-27] MEDS: ROSUVASTATIN 10 MG TABLET PEG SCH (08:28)
[2020-12-27] MEDS: CHOLECALCIFEROL 1,000 UNIT TABLET PO SCH (08:28)
[2020-12-27] MEDS: ASCORBIC ACID 500 MG TABLET PO SCH ×2 (08:28→20:14)
[2020-12-27] MEDS: PROPRANOLOL 10 MG TABLET PO SCH ×2 (08:29→20:14)
[2020-12-27] MEDS: ZINC GLUCONATE 50 MG TABLET PO SCH (08:29)
[2020-12-27] MEDS: CETIRIZINE 10 MG TABLET PO SCH (08:29)
[2020-12-27] MEDS: ACETAMINOPHEN 325 MG TABLET PO PRN (08:30)
[2020-12-27] MEDS: QUEtiapine 25 MG TABLET PO SCH (08:31)
[2020-12-27] MEDS: ENOXAPARIN 30 MG/0.3 ML SYRINGE SUBCUT SCH ×2 (08:31→20:13)
[2020-12-27] MEDS: OMEPRAZOLE ODT 20 MG TABLET NG SCH (08:32)
[2020-12-28 04:19] LABS: Hemoglobin 7.3 GM/DL (14.0-18.0)
[2020-12-28 04:51] LABS: Calcium 8.5 MG/DL (8.5-10.1)
[2020-12-28 08:11] VITALS: BP 115/57
[2020-12-28] MEDS: ZINC GLUCONATE 50 MG TABLET PO SCH (08:30)
[2020-12-28] MEDS: CHOLECALCIFEROL 1,000 UNIT TABLET PO SCH (08:30)
[2020-12-28] MEDS: ASCORBIC ACID 500 MG TABLET PO SCH (08:31)
[2020-12-28] MEDS: QUEtiapine 25 MG TABLET PO SCH (08:31)
[2020-12-28] MEDS: PROPRANOLOL 10 MG TABLET PO SCH (08:31)
[2020-12-28] MEDS: ACETAMINOPHEN 325 MG TABLET PO PRN (08:31)
[2020-12-28] MEDS: CETIRIZINE 10 MG TABLET PO SCH (08:32)
[2020-12-28] MEDS: ENOXAPARIN 30 MG/0.3 ML SYRINGE SUBCUT SCH (08:35)
[2020-12-28] MEDS: OMEPRAZOLE ODT 20 MG TABLET NG SCH (08:35)
== END 2020-12-28 11:30 | disposition swing bed (61) | DRG 871 ==
LOC: EDBD → EDUNIT# → N.ED 18:10 → N.EDINP 22:03 → SUATTDRO 22:03 → N.CC 23:09 → N.2E 12-12 16:41
PROVIDERS: ADMIT Internal Medicine; ATTEND Internal Medicine

== ENCOUNTER 2021-01-22 19:56 | Inpatient (IN) ==
[2021-01-22 20:46] LABS: Basophils % 0.2 % (0.0-0.8); Eosinophils # 0.1 10*3/uL (0.0-0.87); Immature Granulocytes % 0.4 %; Immature Granulocytes Absolute 0.04 #; Lymphocytes # 3.2 10*3/uL (1.4-4.0); Lymphocytes % 35.2 % (21.2-54.2); Mean Corpuscular HGB Conc 33.3 GM/DL (32-36); Mean Corpuscular Volume 112.2 FL (87-102); Mean Platelet Volume 10.7 FL (9.6-12.0); Monocytes % 2.8 % (1.7-12.7); Neutrophils % 60.4 % (38.7-73.9); Platelet Count 271 T/CUMM (130-400); Red Blood Count 1.39 MC/CUMM (3.8-5.5)
[2021-01-22 20:49] LABS: Hematocrit 15.6 VOL% (42.0-52.0); Hemoglobin 5.2 GM/DL (14.0-18.0)
[2021-01-22] MEDS ORDERED: SODIUM CHLORIDE 0.9% 1,000 ML IV STA (20:50)
[2021-01-22 20:55] LABS: Bilirubin,Total 0.6 MG/DL (0.20-1.00); Calcium 8.6 MG/DL (8.5-10.1); Osmolality,Calculated 282.7 MOS/KG (273-304); Potassium 4.6 MMOL/L (3.5-5.1); Total Protein 7.4 G/DL (6.4-8.2)
[2021-01-22 20:58] LABS: INR 1.2; PT Patient Result 12.9 SECS (10.5-12.0)
[2021-01-22 21:06] LABS: Anisocytosis 2+; Band Neutrophils 2 % (0-10); Eosinophils 1 % (0-10); Lymphocytes 34 % (20-55); Segmented Neutrophils 59 % (50-85); Total Cells Counted 100
[2021-01-22 21:07] LABS: Ovalocytes Few; Platelet Estimate Adequate; Spherocytes Few
[2021-01-22] MEDS ORDERED: DOCUSATE SODIUM 100 MG CAPSULE PO PRN (21:38)
[2021-01-22] MEDS ORDERED: DEXTROSE 50% 25 GM/50 ML VIAL IV PRN (21:38)
[2021-01-22] MEDS ORDERED: ACETAMINOPHEN 325 MG TABLET PO PRN (21:38)
[2021-01-22] MEDS ORDERED: MORPHINE 2 MG/1 ML SYRINGE IV PRN (21:38)
[2021-01-22] MEDS ORDERED: NICOTINE 21 MG/24 HR PATCH TRANSDERM PRN (21:38)
[2021-01-22] MEDS ORDERED: guaiFENesin/DM ER 600-30 MG TABLET PO PRN (21:38)
[2021-01-22] MEDS ORDERED: hydrALAZINE 20 MG/1 ML VIAL IV PRN (21:38)
[2021-01-22] MEDS ORDERED: ONDANSETRON 4 MG/2 ML VIAL IV PRN (21:38)
[2021-01-22] MEDS ORDERED: diphenhydrAMINE CAP 25 MG CAPSULE PO PRN (21:38)
[2021-01-22] MEDS ORDERED: GLUCAGON 1 MG VIAL IM PRN (21:38)
[2021-01-22 22:08] LABS: Eosinophils # 0.1 10*3/uL (0.0-0.87); Immature Granulocytes % 0.8 %; Immature Granulocytes Absolute 0.05 #; Lymphocytes # 1.9 10*3/uL (1.4-4.0); Lymphocytes % 31.2 % (21.2-54.2); Mean Corpuscular HGB Conc 32.8 GM/DL (32-36); Mean Corpuscular Volume 112.6 FL (87-102); Mean Platelet Volume 10.8 FL (9.6-12.0); Monocytes % 4.5 % (1.7-12.7); Neutrophils % 62.5 % (38.7-73.9); Platelet Count 223 T/CUMM (130-400); Red Blood Count 1.19 MC/CUMM (3.8-5.5); White Blood Count 6.2 T/CUMM (4-12)
[2021-01-22 22:11] LABS: Hematocrit 13.4 VOL% (42.0-52.0); Hemoglobin 4.4 GM/DL (14.0-18.0)
[2021-01-22 22:16] LABS: Folate 9.21 NG/ML (5.38-24.0); Vitamin B12 1703 PG/ML (211-911)
[2021-01-22 22:42] LABS: Band Neutrophils 5 % (0-10); Eosinophils 2 % (0-10); Lymphocytes 25 % (20-55); Segmented Neutrophils 63 % (50-85); Total Cells Counted 100
[2021-01-22 22:53] LABS: Hypochromasia 1+; Platelet Estimate Normal
[2021-01-22 22:54] LABS: Microcytosis 1+
[2021-01-22 22:55] LABS: Anisocytosis 1+; Reactive Lymphocytes 2+
[2021-01-22 23:14] LABS: Sedimentation Rate-Westergren 158 MM/HR (0-20)
[2021-01-23 04:22] LABS: Basophils % 0.6 % (0.0-0.8); Eosinophils # 0.1 10*3/uL (0.0-0.87); Eosinophils % 1.2 % (0.00-10.9); Immature Granulocytes % 0.4 %; Immature Granulocytes Absolute 0.02 #; Lymphocytes # 2.1 10*3/uL (1.4-4.0); Lymphocytes % 42.1 % (21.2-54.2); Mean Corpuscular HGB Conc 32.6 GM/DL (32-36); Mean Corpuscular Volume 114.8 FL (87-102); Mean Platelet Volume 10.5 FL (9.6-12.0); Monocytes % 3.8 % (1.7-12.7); Neutrophils % 51.9 % (38.7-73.9); Platelet Count 208 T/CUMM (130-400); Red Blood Count 1.15 MC/CUMM (3.8-5.5)
[2021-01-23 04:39] LABS: Calcium 8.5 MG/DL (8.5-10.1); Osmolality,Calculated 280.7 MOS/KG (273-304)
[2021-01-23 04:47] LABS: Hematocrit 13.2 VOL% (42.0-52.0); Hemoglobin 4.3 GM/DL (14.0-18.0)
[2021-01-23 04:51] LABS: Band Neutrophils 3 % (0-10); Eosinophils 1 % (0-10); Lymphocytes 32 % (20-55); Segmented Neutrophils 58 % (50-85); Total Cells Counted 100
[2021-01-23 04:52] LABS: Anisocytosis 1+; Hypochromasia 1+
[2021-01-23 04:53] LABS: Microcytosis 1+; Ovalocytes Slight; Platelet Estimate Normal
[2021-01-23] MEDS: PANTOPRAZOLE 40 MG TABLET PO SCH (09:31)
[2021-01-23] MEDS: CETIRIZINE 10 MG TABLET PEG SCH (09:31)
[2021-01-23] MEDS: SERTRALINE 25 MG TABLET PEG SCH (09:31)
[2021-01-23] MEDS: QUEtiapine 25 MG TABLET PEG SCH (09:31)
[2021-01-23] MEDS: PROPRANOLOL 10 MG TABLET PEG SCH ×2 (09:31→20:42)
[2021-01-23 19:59] LABS: Hematocrit 39.4 VOL% (42.0-52.0)
[2021-01-23] MEDS ORDERED: ATORVASTATIN 20 MG TABLET PEG SCH (21:00)
[2021-01-24 06:01] LABS: Basophils # 0.2 10*3/uL (0.0-0.2); Basophils % 2.1 % (0.0-0.8); Eosinophils # 0.2 10*3/uL (0.0-0.87); Eosinophils % 1.9 % (0.00-10.9); Hematocrit 43.4 VOL% (42.0-52.0); Hemoglobin 14.1 GM/DL (14.0-18.0); Immature Granulocytes % 0.3 %; Immature Granulocytes Absolute 0.03 #; Lymphocytes # 2.8 10*3/uL (1.4-4.0); Mean Corpuscular HGB Conc 32.5 GM/DL (32-36); Mean Corpuscular Volume 98.2 FL (87-102); Monocytes % 3.4 % (1.7-12.7); Neutrophils % 59.3 % (38.7-73.9); Platelet Count 169 T/CUMM (130-400); Red Cell Distribution Width 20.6 % (9.3-17.3); White Blood Count 8.6 T/CUMM (4-12)
[2021-01-24 06:06] LABS: Red Blood Count 4.42 MC/CUMM (3.8-5.5)
[2021-01-24 06:16] LABS: Calcium 8.6 MG/DL (8.5-10.1); Osmolality,Calculated 269.4 MOS/KG (273-304)
[2021-01-24 06:53] LABS: Band Neutrophils 2 % (0-10); Eosinophils 1 % (0-10); Lymphocytes 31 % (20-55); Promyelocytes 1 %; Segmented Neutrophils 60 % (50-85); Total Cells Counted 100
[2021-01-24 06:55] LABS: Platelet Estimate Normal
[2021-01-24] MEDS ORDERED: POLYETHYLENE GLYCOL POWDER 17 GM PACK PO SCH (09:00)
[2021-01-24] MEDS ORDERED: DOCUSATE SODIUM 100 MG CAPSULE PO SCH (09:00)
[2021-01-24] MEDS: QUEtiapine 25 MG TABLET PEG SCH (09:48)
[2021-01-24] MEDS: PROPRANOLOL 10 MG TABLET PEG SCH (09:48)
[2021-01-24] MEDS: CETIRIZINE 10 MG TABLET PEG SCH (09:48)
[2021-01-24] MEDS: PANTOPRAZOLE 40 MG TABLET PO SCH (09:48)
[2021-01-24] MEDS: SERTRALINE 25 MG TABLET PEG SCH (09:48)
[2021-01-24 12:06] VITALS: BP 115/57
[2021-01-25 09:49] LABS: Hemoglobin A1 (Alkaline) 97.1 % (96.5-98.5); Hemoglobin A2 (Alkaline) 2.9 % (1.5-3.5)
== END 2021-01-24 13:35 | DRG 812 ==
LOC: EDUNIT# → EDBD → N.ED 19:56 → N.EDINP 21:38 → N.2W 22:59
PROVIDERS: ADMIT Internal Medicine; ATTEND Internal Medicine